=== PATIENT | male | born 1955 | race Hispanic/Latino ===

== ENCOUNTER → 2018-07-11 | Emergency (ER) | payer MEDICARE, OTHER ==
[~2018-07-11] VITALS: Ht 157.5 cm; Wt 120.2 kg
[~2018-07-11] MED LIST: CEFEPIME HCL 2 GM VIAL IV SCH; MORPHINE SULFATE INJ 4 MG/ML INJ IV PRN; VANCOMYCIN 1GM/NS 250 ML 250 ML IV SCH
--- OUTSIDE RECORDS SUMMARY | 2018-07-11 18:33 | XMS REPORT | CCD ---
Author Author Auto Generated Organization 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 Name Role Phone Robin Allred CP Allergies, Adverse Reactions, Alerts Substance Reaction Status NKDA Active Medications Medication Instructions Start Date End Date Status lidocaine 1% 1 ml, Route: SUB-Q, Drug Form: INJ, 06/09/2012 06/09/2012 Ordered Dosing Weight 132.727, kg, ONCE, STAT, Start date: 06/09/12 17:11:00, Stop date: 06/09/12 17:11:00 Bactrim oral tablet 2 tab, PO, BID, 40 tab, 06/09/2012 06/19/2012 Ordered Substitution Allowed, Maintenance Keflex 500 mg oral 500 mg, 1 cap, PO, QID, 40 cap, 06/09/2012 06/19/2012 Ordered capsule Substitution Allowed Vital Signs Most recent to oldest [Reference Range]: 1 Weight 132.727 kg (06/09/2012 14:29:00) Results BEDSIDE GLUCOSE TESTING Most recent to oldest [Reference Range]: 1 Gluc POC Lifscn [70-99 mg/dL] 92 mg/dL 1 (06/09/2012 17:17:00) Comment1 Notify RN/MD *NA* (06/09/2012 17:17:00) 1Interpretive Data: Upper Reportable Limit: 200 mg/dL.
--- OUTSIDE RECORDS SUMMARY | 2018-07-11 18:33 | XMS REPORT ---
Author Author [facility] Address Unknown Phone Unavailable Care Team Providers Care Maintenance Machine Repairer Name Role Phone GIANNI TOBIN Unavailable Unavailable STEPHEN ARMAS Unavailable Unavailable TEODORO GUAJARDO Unavailable Unavailable Jourdan ESPARZA Unavailable Unavailable Problems This patient has no known problems. Allergies, Adverse Reactions, Alerts This patient has no known allergies or adverse reactions. Medications This patient has no known medications. Results Test Description Test Time Test Comments Text Results Atomic Results Result Comments BLOOD CULTURE 2018-06-22 10:01:00 CULTURE (BEAKER) (test ewll=1369) No growth in 5 days BLOOD [id number] 23:01:00* Test Item Value Reference Range Comments CULTURE (BEAKER) (test tmzs=5728) No growth in 5 days BLOOD [id number] 23:01:00* Test Item Value Reference Range Comments CULTURE (BEAKER) (test kjbj=5518) No growth in 5 days POCT-GLUCOSE [id number] 11:45:00* Test Item Value Reference Range Comments POC-GLUCOSE METER (BEAKER) (test ekae=3597) 121 mg/dL 70-110 [address]ED AT [address] [address] POCT-GLUCOSE [id number] 07:49:00* Test Item Value Reference Range Comments POC-GLUCOSE METER (BEAKER) (test czdf=1242) 81 mg/dL 70-110 TESTED AT [address] [address] BASIC METABOLIC [id number] 06:28:00* Test Item Value Reference Range Comments SODIUM (BEAKER) (test xftt=451) 137 meq/L 136-145 POTASSIUM (BEAKER) (test cqtb=453) 4.3 meq/L 3.5-5.1 CHLORIDE (BEAKER) (test rqho=006) 105 meq/L 98-107 CO2 (BEAKER) (test tozc=781) 24 meq/L 22-29 BLOOD UREA NITROGEN (BEAKER) (test cwai=762) 12 mg/dL 7-21 CREATININE (BEAKER) (test atzr=700) 0.85 mg/dL 0.57-1.25 GLUCOSE RANDOM (BEAKER) (test vqng=148) 67 mg/dL 70-105 CALCIUM (BEAKER) (test lmqi=007) 9.1 mg/dL 8.4-10.2 EGFR (BEAKER) (test qiqz=0570) 91 mL/min/1.73 sq m ESTIMATED GFR IS NOT ACCURATE CREATININE CLEARANCE IN PREDICTING GLOMERULAR FILTRATION RATE. ESTIMATED GFR IS NOT APPLICABLE FOR DIALYSIS PATIENTS. VANCOMYCIN LEVEL, [id number] 06:00:00* Test Item Value Reference Range Comments VANCOMYCIN RANDOM (BEAKER) (test rtro=913) 50.8 ug/mL Reference Range: No NormalsCBC W/PLT COUNT & AUTO [id number] 05:24:00* Test Item Value Reference Range Comments WHITE BLOOD CELL COUNT (BEAKER) (test eodb=760) 8.6 K/ L 3.5-10.5 RED BLOOD CELL COUNT (BEAKER) (test zkaj=207) 4.09 M/ L 4.63-6.08 HEMOGLOBIN (BEAKER) (test psaw=686) 13.0 GM/DL 13.7-17.5 HEMATOCRIT (BEAKER) (test qpvr=118) 40.4 % 40.1-51.0 MEAN CORPUSCULAR VOLUME (BEAKER) (test rjkx=970) 98.8 fL 79.0-92.2 MEAN CORPUSCULAR HEMOGLOBIN (BEAKER) (test zoyn=355) 31.8 pg 25.7-32.2 MEAN CORPUSCULAR HEMOGLOBIN CONC (BEAKER) (test omkc=419) 32.2 GM/DL 32.3-36.5 RED CELL DISTRIBUTION WIDTH (BEAKER) (test mlfz=050) 15.1 % 11.6-14.4 PLATELET COUNT (BEAKER) (test xfvr=653) 234 K/CU MM 150-450 MEAN PLATELET VOLUME (BEAKER) (test wckr=785) 9.9 fL 9.4-12.4 NUCLEATED RED BLOOD CELLS (BEAKER) (test vnhn=263) 0 /100 WBC 0-0 NEUTROPHILS RELATIVE PERCENT (BEAKER) (test kjac=625) 52 % LYMPHOCYTES RELATIVE PERCENT (BEAKER) (test ypfj=981) 20 % MONOCYTES RELATIVE PERCENT (BEAKER) (test zcbe=381) 17 % EOSINOPHILS RELATIVE PERCENT (BEAKER) (test rizq=222) 10 % BASOPHILS RELATIVE PERCENT (BEAKER) (test ctly=536) 1 % NEUTROPHILS ABSOLUTE COUNT (BEAKER) (test wptu=306) 4.50 K/ L 1.78-5.38 LYMPHOCYTES ABSOLUTE COUNT (BEAKER) (test zarb=824) 1.74 K/ L 1.32-3.57 MONOCYTES ABSOLUTE COUNT (BEAKER) (test wtft=591) 1.45 K/ L 0.30-0.82 EOSINOPHILS ABSOLUTE COUNT (BEAKER) (test kryo=425) 0.84 K/ L 0.04-0.54 BASOPHILS ABSOLUTE COUNT (BEAKER) (test sjxp=769) 0.07 K/ L 0.01-0.08 IMMATURE GRANULOCYTES-RELATIVE PERCENT (BEAKER) (test fqzi=0501) 0 % 0-1 POCT-GLUCOSE [id number] 22:20:00* Test Item Value Reference Range Comments POC-GLUCOSE METER (BEAKER) (test tcet=1510) 93 mg/dL 70-110 TESTED AT [address] [address] POCT-GLUCOSE [id number] 16:57:00* Test Item Value Reference Range Comments POC-GLUCOSE METER (BEAKER) (test bruq=6062) 150 mg/dL 70-110 TESTED AT [address] [address] VANCOMYCIN LEVEL, [id number] 15:28:00* Test Item Value Reference Range Comments VANCOMYCIN RANDOM (BEAKER) (test exea=233) 56.7 ug/mL Reference Range: No NormalsPOCT-GLUCOSE [id number] 12:49:00* Test Item Value Reference Range Comments POC-GLUCOSE METER (BEAKER) (test ktky=7979) 94 mg/dL 70-110 TESTED AT [address] [address] POCT-GLUCOSE [id number] 08:30:00* Test Item Value Reference Range Comments POC-GLUCOSE METER (BEAKER) (test uarn=1064) 88 mg/dL 70-110 TESTED AT [address] [address] VANCOMYCIN LEVEL, [id number] 07:30:00* Test Item Value Reference Range Comments VANCOMYCIN TROUGH (BEAKER) (test rzen=064) 54.7 ug/mL 10.0-20.0 BASIC METABOLIC [id number] 07:29:00* Test Item Value Reference Range Comments SODIUM (BEAKER) (test ustf=504) 140 meq/L 136-145 POTASSIUM (BEAKER) (test cbah=151) 4.3 meq/L 3.5-5.1 CHLORIDE (BEAKER) (test jcdd=004) 109 meq/L 98-107 CO2 (BEAKER) (test qdnb=682) 26 meq/L 22-29 BLOOD UREA NITROGEN (BEAKER) (test kuzr=736) 13 mg/dL 7-21 CREATININE (BEAKER) (test zreu=878) 0.84 mg/dL 0.57-1.25 GLUCOSE RANDOM (BEAKER) (test tbkn=154) 80 mg/dL 70-105 CALCIUM (BEAKER) (test zwbq=963) 9.0 mg/dL 8.4-10.2 EGFR (BEAKER) (test roml=3120) 93 mL/min/1.73 sq m ESTIMATED GFR IS NOT ACCURATE CREATININE CLEARANCE IN PREDICTING GLOMERULAR FILTRATION RATE. ESTIMATED GFR IS NOT APPLICABLE FOR DIALYSIS PATIENTS. CBC W/PLT COUNT & AUTO [id number] 05:41:00* Test Item Value Reference Range Comments WHITE BLOOD CELL COUNT (BEAKER) (test yxum=540) 9.1 K/ L 3.5-10.5 RED BLOOD CELL COUNT (BEAKER) (test omig=594) 3.96 M/ L 4.63-6.08 HEMOGLOBIN (BEAKER) (test lhxy=534) 12.5 GM/DL 13.7-17.5 HEMATOCRIT (BEAKER) (test dkop=713) 41.0 % 40.1-51.0 MEAN CORPUSCULAR VOLUME (BEAKER) (test ywqn=325) 103.5 fL 79.0-92.2 MEAN CORPUSCULAR HEMOGLOBIN (BEAKER) (test jzrs=460) 31.6 pg 25.7-32.2 MEAN CORPUSCULAR HEMOGLOBIN CONC (BEAKER) (test gqjx=268) 30.5 GM/DL 32.3-36.5 RED CELL DISTRIBUTION WIDTH (BEAKER) (test mzue=238) 15.7 % 11.6-14.4 PLATELET COUNT (BEAKER) (test zvay=417) 228 K/CU MM 150-450 MEAN PLATELET VOLUME (BEAKER) (test zlzh=924) 9.8 fL 9.4-12.4 NUCLEATED RED BLOOD CELLS (BEAKER) (test dkam=312) 0 /100 WBC 0-0 NEUTROPHILS RELATIVE PERCENT (BEAKER) (test dkyw=970) 62 % LYMPHOCYTES RELATIVE PERCENT (BEAKER) (test tsen=846) 15 % MONOCYTES RELATIVE PERCENT (BEAKER) (test qroz=229) 14 % EOSINOPHILS RELATIVE PERCENT (BEAKER) (test utxk=940) 8 % BASOPHILS RELATIVE PERCENT (BEAKER) (test dcdb=300) 1 % NEUTROPHILS ABSOLUTE COUNT (BEAKER) (test msdj=209) 5.64 K/ L 1.78-5.38 LYMPHOCYTES ABSOLUTE COUNT (BEAKER) (test bmga=122) 1.33 K/ L 1.32-3.57 MONOCYTES ABSOLUTE COUNT (BEAKER) (test ssck=701) 1.26 K/ L 0.30-0.82 EOSINOPHILS ABSOLUTE COUNT (BEAKER) (test cbpm=736) 0.74 K/ L 0.04-0.54 BASOPHILS ABSOLUTE COUNT (BEAKER) (test rnyc=075) 0.07 K/ L 0.01-0.08 IMMATURE GRANULOCYTES-RELATIVE PERCENT (BEAKER) (test vkog=8326) 0 % 0-1 CBC W/PLT COUNT & AUTO [id number] 05:41:00* Test Item Value Reference Range Comments WHITE BLOOD CELL COUNT (BEAKER) (test vwjt=512) 10.1 K/ L 3.5-10.5 RED BLOOD CELL COUNT (BEAKER) (test dnhb=248) 4.01 M/ L 4.63-6.08 HEMOGLOBIN (BEAKER) (test snvx=293) 12.5 GM/DL 13.7-17.5 HEMATOCRIT (BEAKER) (test kosv=656) 40.0 % 40.1-51.0 MEAN CORPUSCULAR VOLUME (BEAKER) (test sbpy=948) 99.8 fL 79.0-92.2 MEAN CORPUSCULAR HEMOGLOBIN (BEAKER) (test ijlq=681) 31.2 pg 25.7-32.2 MEAN CORPUSCULAR HEMOGLOBIN CONC (BEAKER) (test ahcr=257) 31.3 GM/DL 32.3-36.5 RED CELL DISTRIBUTION WIDTH (BEAKER) (test aqsz=897) 15.6 % 11.6-14.4 PLATELET COUNT (BEAKER) (test eitn=419) 225 K/CU MM 150-450 MEAN PLATELET VOLUME (BEAKER) (test cpjw=599) 9.7 fL 9.4-12.4 NUCLEATED RED BLOOD CELLS (BEAKER) (test hkjn=333) 0 /100 WBC 0-0 NEUTROPHILS RELATIVE PERCENT (BEAKER) (test zvnu=051) 63 % LYMPHOCYTES RELATIVE PERCENT (BEAKER) (test ihcn=427) 14 % MONOCYTES RELATIVE PERCENT (BEAKER) (test oxrv=750) 13 % EOSINOPHILS RELATIVE PERCENT (BEAKER) (test vgzh=281) 9 % BASOPHILS RELATIVE PERCENT (BEAKER) (test wpwj=480) 1 % NEUTROPHILS ABSOLUTE COUNT (BEAKER) (test rvbj=114) 6.32 K/ L 1.78-5.38 LYMPHOCYTES ABSOLUTE COUNT (BEAKER) (test ecdu=241) 1.42 K/ L 1.32-3.57 MONOCYTES ABSOLUTE COUNT (BEAKER) (test yzek=541) 1.32 K/ L 0.30-0.82 EOSINOPHILS ABSOLUTE COUNT (BEAKER) (test mpjt=784) 0.86 K/ L 0.04-0.54 BASOPHILS ABSOLUTE COUNT (BEAKER) (test gyyj=245) 0.09 K/ L 0.01-0.08 IMMATURE GRANULOCYTES-RELATIVE PERCENT (BEAKER) (test royc=8116) 0 % 0-1 POCT-GLUCOSE [id number] 21:50:00* Test Item Value Reference Range Comments POC-GLUCOSE METER (BEAKER) (test mgmk=4951) 92 mg/dL 70-110 TESTED AT [address] [address] POCT-GLUCOSE [id number] 18:04:00* Test Item Value Reference Range Comments POC-GLUCOSE METER (BEAKER) (test ubdr=4440) 111 mg/dL 70-110 TESTED AT [address] [address] POCT-GLUCOSE [id number] 12:37:00* Test Item Value Reference Range Comments POC-GLUCOSE METER (BEAKER) (test dpaz=1440) 92 mg/dL 70-110 TESTED AT [address] [address] POCT-GLUCOSE [id number] 08:51:00* Test Item Value Reference Range Comments POC-GLUCOSE METER (BEAKER) (test dwrs=7921) 95 mg/dL 70-110 TESTED AT [facility] [address] [facility] [address] BLOOD GAS, [id number] 07:33:00* Test Item Value Reference Range Comments PH VENOUS (BEAKER) (test pkpa=133) 7.30 7.32-7.42 PCO2 VENOUS (BEAKER) (test crzu=476) 54 mmHg 41-51 PO2 VENOUS (BEAKER) (test bcqd=717) 202 mmHg 25-40 O2 SATURATION VENOUS (BEAKER) (test wlek=743) 99.2 % 40.0-70.0 HCO3 VENOUS (BEAKER) (test fysz=610) 26 mmol/L 21-29 BASE EXCESS VENOUS (BEAKER) (test evid=767) -1.1 mmol/L -2.0-3.0 PATIENT TEMPERATURE (BEAKER) (test xaux=7681) 38.0 C FIO2 (BEAKER) (test brbv=7188) 24.0 % COMPREHENSIVE METABOLIC [id number] 05:28:00* Test Item Value Reference Range Comments TOTAL PROTEIN (BEAKER) (test kmvd=421) 7.5 gm/dL 6.0-8.3 Specimen moderately hemolyzed ALBUMIN (BEAKER) (test goir=8683) 2.7 g/dL 3.5-5.0 Specimen moderately hemolyzed ALKALINE PHOSPHATASE (BEAKER) (test xrtv=928) 55 U/L 40-150 BILIRUBIN TOTAL (BEAKER) (test snyc=251) 1.0 mg/dL 0.2-1.2 Specimen moderately hemolyzed SODIUM (BEAKER) (test ojna=783) 142 meq/L 136-145 POTASSIUM (BEAKER) (test suyx=735) 4.7 meq/L 3.5-5.1 Specimen moderately hemolyzed CHLORIDE (BEAKER) (test jhkm=075) 110 meq/L 98-107 CO2 (BEAKER) (test nmgc=369) 28 meq/L 22-29 BLOOD UREA NITROGEN (BEAKER) (test dhdv=764) 13 mg/dL 7-21 CREATININE (BEAKER) (test ciag=071) 0.81 mg/dL 0.57-1.25 Specimen moderately hemolyzed GLUCOSE RANDOM (BEAKER) (test zhek=691) 86 mg/dL 70-105 CALCIUM (BEAKER) (test bekx=690) 9.1 mg/dL 8.4-10.2 AST (SGOT) (BEAKER) (test inro=726) 40 U/L 5-34 Specimen moderately hemolyzed ALT (SGPT) (BEAKER) (test vrvo=507) 12 U/L 6-55 Specimen moderately hemolyzed EGFR (BEAKER) (test xnzh=3897) 97 mL/min/1.73 sq m ESTIMATED GFR IS NOT ACCURATE CREATININE CLEARANCE IN PREDICTING GLOMERULAR FILTRATION RATE. ESTIMATED GFR IS NOT APPLICABLE FOR DIALYSIS PATIENTS. CBC W/PLT COUNT & AUTO [id number] 05:04:00* Test Item Value Reference Range Comments WHITE BLOOD CELL COUNT (BEAKER) (test ndmq=294) 8.4 K/ L 3.5-10.5 RED BLOOD CELL COUNT (BEAKER) (test mgtr=442) 3.91 M/ L 4.63-6.08 HEMOGLOBIN (BEAKER) (test cyva=590) 12.4 GM/DL 13.7-17.5 HEMATOCRIT (BEAKER) (test pezj=365) 38.0 % 40.1-51.0 MEAN CORPUSCULAR VOLUME (BEAKER) (test squy=097) 97.2 fL 79.0-92.2 MEAN CORPUSCULAR HEMOGLOBIN (BEAKER) (test yida=041) 31.7 pg 25.7-32.2 MEAN CORPUSCULAR HEMOGLOBIN CONC (BEAKER) (test urfg=331) 32.6 GM/DL 32.3-36.5 RED CELL DISTRIBUTION WIDTH (BEAKER) (test zifr=392) 15.8 % 11.6-14.4 PLATELET COUNT (BEAKER) (test xdts=510) 227 K/CU MM 150-450 MEAN PLATELET VOLUME (BEAKER) (test izjo=307) 9.6 fL 9.4-12.4 NUCLEATED RED BLOOD CELLS (BEAKER) (test nevc=562) 0 /100 WBC 0-0 NEUTROPHILS RELATIVE PERCENT (BEAKER) (test anfb=589) 63 % LYMPHOCYTES RELATIVE PERCENT (BEAKER) (test cpag=972) 19 % MONOCYTES RELATIVE PERCENT (BEAKER) (test qutc=752) 13 % EOSINOPHILS RELATIVE PERCENT (BEAKER) (test mjur=393) 4 % BASOPHILS RELATIVE PERCENT (BEAKER) (test nsby=683) 1 % NEUTROPHILS ABSOLUTE COUNT (BEAKER) (test kzkp=863) 5.26 K/ L 1.78-5.38 LYMPHOCYTES ABSOLUTE COUNT (BEAKER) (test emjf=152) 1.57 K/ L 1.32-3.57 MONOCYTES ABSOLUTE COUNT (BEAKER) (test xfan=423) 1.07 K/ L 0.30-0.82 EOSINOPHILS ABSOLUTE COUNT (BEAKER) (test nnez=000) 0.37 K/ L 0.04-0.54 BASOPHILS ABSOLUTE COUNT (BEAKER) (test nyam=823) 0.04 K/ L 0.01-0.08 IMMATURE GRANULOCYTES-RELATIVE PERCENT (BEAKER) (test jdff=0073) 1 % 0-1 POCT-GLUCOSE [id number] 21:22:00* Test Item Value Reference Range Comments POC-GLUCOSE METER (BEAKER) (test cnoj=7857) 101 mg/dL 70-110 TESTED AT [address] [address] RAD, FOOT, MIN 3 VIEWS, [id number] 17:31:00Reason for exam:->FO[place] PA[place] [facility] [place] on both feetShould this be performed at the bedside?->NoFINAL REPORT EXAM: Left foot 3 views COMPARISON: July 02, 2017 Clinical history: Foot pain FINDINGS: Diffuse soft tissue swelling is again noted throughout the entire foot and ankle which may represent edema versus postinflammatory changes. There is no evidence of acute fracture or malalignment. The articular joints are within normal limits. Signed: Eddie Cervantes MDReport Verified Date/Time: 06/16/2018 17:31:31 Reading Location: [facility] C013W Consult Reading Room , FOOT, MIN 3 VIEWS, [id number] 17:29:00Reason for exam:->FOOT PAINpatientbr[place] [facility] [place] on both feetShould this be performed at the bedside?->NoFINAL REPORT EXAM: Right foot 3 views COMPARISON: July 02, 2017 CLINICAL HISTORY: Foot pain FINDINGS: There is no evidence for acute fracture or malalignment. The articular joints are within normal limits. Diffuse soft tissue prominence is again noted which may represent edema versus post inf lammatory changes. Recommend clinical correlation. Signed: Eddie Cervantes MDRep ort Verified Date/Time: 06/16/2018 17:29:59 Reading Location: [address] Cons ult Reading Room , CHEST, 2 [id number] 17:27:00Reason for exam:-> wheezingpatientbr[place] [facility] [place] on both feetShould this be p erformed at the bedside?->NoFINAL REPORT EXAM: PA and lateral chest radiograph COMPARISON: March 19, 2018 CLINICAL HISTORY: Wheezing FINDINGS: There is no evidence of pulmonary consolidation, pleural effusion, or pneumothorax. There is interval improvement in left basilar pulmonary opacity which may represent resolved atelectasis versus consolidation. The cardiac size is within normal limits. The regional osseous structures are unremarkable. Signed: Eddie Cervantes MDReport Verified Date/Time: 06/16/2018 17:27:07 Reading Location: [address] Consult Reading Room C METABOLIC [id number] 16:56:00* Test Item Value Reference Range Comments SODIUM (BEAKER) (test yifq=205) 142 meq/L 135-148 POTASSIUM (BEAKER) (test ulcd=083) 5.3 meq/L 3.6-5.5 CHLORIDE (BEAKER) (test lakw=942) 103 meq/L 98-106 CO2 (BEAKER) (test qmpa=202) 32 meq/L 24-32 BLOOD UREA NITROGEN (BEAKER) (test cpcs=151) 15 mg/dL 10-26 CREATININE (BEAKER) (test jvtk=457) 0.66 mg/dL 0.50-1.20 GLUCOSE RANDOM (BEAKER) (test uvbo=336) 74 mg/dL 70-110 CALCIUM (BEAKER) (test xtul=366) 9.1 mg/dL 8.5-10.5 EGFR (BEAKER) (test mhod=2876) 122 mL/min/1.73 sq m ESTIMATED GFR IS NOT ACCURATE CREATININE CLEARANCE IN PREDICTING GLOMERULAR FILTRATION RATE. ESTIMATED GFR IS NOT APPLICABLE FOR DIALYSIS PATIENTS. CBC W/PLT COUNT & AUTO [id number] 16:49:00* Test Item Value Reference Range Comments WHITE BLOOD CELL COUNT (BEAKER) (test ktvo=043) 11.4 K/ L 4.0-10.0 RED BLOOD CELL COUNT (BEAKER) (test amdp=000) 4.61 M/ L 4.20-5.80 HEMOGLOBIN (BEAKER) (test jkkv=948) 14.0 GM/DL 13.0-16.8 HEMATOCRIT (BEAKER) (test qvue=072) 43.7 % 40.0-50.0 MEAN CORPUSCULAR VOLUME (BEAKER) (test nlla=048) 94.7 fL 82.0-98.0 MEAN CORPUSCULAR HEMOGLOBIN (BEAKER) (test cqfr=547) 30.5 pg 27.0-33.0 MEAN CORPUSCULAR HEMOGLOBIN CONC (BEAKER) (test bdqe=288) 32.2 GM/DL 32.0-36.0 RED CELL DISTRIBUTION WIDTH (BEAKER) (test jtac=098) 13.4 % 10.3-14.2 PLATELET COUNT (BEAKER) (test ofpx=013) 344 K/CU MM 150-430 MEAN PLATELET VOLUME (BEAKER) (test ojtz=229) 8.2 fL 6.5-10.5 NEUTROPHILS RELATIVE PERCENT (BEAKER) (test leao=214) 57 % LYMPHOCYTES RELATIVE PERCENT (BEAKER) (test fglh=170) 22 % MONOCYTES RELATIVE PERCENT (BEAKER) (test zzst=449) 16 % EOSINOPHILS RELATIVE PERCENT (BEAKER) (test uyfh=116) 4 % BASOPHILS RELATIVE PERCENT (BEAKER) (test ueml=842) 1 % NEUTROPHILS ABSOLUTE COUNT (BEAKER) (test zosr=141) 6.45 K/ L 1.80-8.00 LYMPHOCYTES ABSOLUTE COUNT (BEAKER) (test cbip=185) 2.48 K/ L 1.48-4.50 MONOCYTES ABSOLUTE COUNT (BEAKER) (test fmwc=356) 1.78 K/ L 0.00-1.30 EOSINOPHILS ABSOLUTE COUNT (BEAKER) (test epqy=771) 0.50 K/ L 0.00-0.50 BASOPHILS ABSOLUTE COUNT (BEAKER) (test pgro=067) 0.15 K/ L 0.00-0.20 RAPID [id number] 15:57:00* Test Item Value Reference Range Comments RAPID CKMB (BEAKER) (test qnjv=5188) 3.5 ng/mL 0.0-4.3 RAPID TROPONIN [id number] 15:57:00* Test Item Value Reference Range Comments RAPID TROPONIN I (BEAKER) (test flkm=6438) < ng/mL <0.05 RAD, CHEST, 1 VIEW, NON [id number] 15:51:00Reason for exam:->CHEST PAINpatient c/o left chest pain with sob x3 daysShould this be performed at the bedside?->NoFINAL REPORT TECHNIQUE: Frontal chest radiograph dated 03/19/2018. CLINICAL HISTORY: Chest pain COMPARISON STUDY: Chest radiograph dated 07/02/2017 IMPRESSION: There is atelectasis in the lung bases. Lungs are otherwise clear. No pleural effusion or pneumothorax. Cardiomediastinal silhouette is stable in size. No pulmonary edema. No fracture. Signed: Tracy Hand Verified Date/Time: 03/19/2018 15:51:57 Reading Location: [facility] Radiology Reading Room B-TYPE NATRIURETIC FACTOR (BNP) 2018-03-19 15:49:00* Test Item Value Reference Range Comments B-TYPE NATRIURETIC PEPTIDE (BEAKER) (test crbf=624) 51 pg/mL 0-100 HEPATIC FUNCTION [id number] 15:44:00* Test Item Value Reference Range Comments TOTAL PROTEIN (BEAKER) (test vhqb=508) 8.9 gm/dL 6.0-8.5 ALBUMIN (BEAKER) (test iiks=3905) 3.6 g/dL 3.5-5.0 BILIRUBIN TOTAL (BEAKER) (test wcos=295) 0.7 mg/dL 0.1-1.2 BILIRUBIN DIRECT (BEAKER) (test xlgb=864) 0.4 mg/dL 0.0-0.4 ALKALINE PHOSPHATASE (BEAKER) (test orqb=807) 105 U/L 30-115 AST (SGOT) (BEAKER) (test bsmc=574) 34 U/L 5-40 ALT (SGPT) (BEAKER) (test rblk=578) 28 U/L 5-50 BASIC METABOLIC [id number] 15:41:00* Test Item Value Reference Range Comments SODIUM (BEAKER) (test juue=280) 146 meq/L 135-148 POTASSIUM (BEAKER) (test uvkp=304) 4.4 meq/L 3.6-5.5 CHLORIDE (BEAKER) (test jnre=628) 109 meq/L 98-106 CO2 (BEAKER) (test thrt=969) 29 meq/L 24-32 BLOOD UREA NITROGEN (BEAKER) (test dxlq=211) 13 mg/dL 10-26 CREATININE (BEAKER) (test hkkz=582) 0.71 mg/dL 0.50-1.20 GLUCOSE RANDOM (BEAKER) (test ufbq=857) 81 mg/dL 70-110 CALCIUM (BEAKER) (test umgz=926) 9.1 mg/dL 8.5-10.5 EGFR (BEAKER) (test cufc=4321) 112 mL/min/1.73 sq m ESTIMATED GFR IS NOT ACCURATE CREATININE CLEARANCE IN PREDICTING GLOMERULAR FILTRATION RATE. ESTIMATED GFR IS NOT APPLICABLE FOR DIALYSIS PATIENTS. [id number] 15:41:00* Test Item Value Reference Range Comments LIPASE (BEAKER) (test srxr=128) 82 U/L 40-240 CBC W/PLT COUNT & AUTO [id number] 15:35:00* Test Item Value Reference Range Comments WHITE BLOOD CELL COUNT (BEAKER) (test boia=153) 10.1 10e3/i? L 4.0-10.0 RED BLOOD CELL COUNT (BEAKER) (test iiuz=605) 5.06 10e6/i? L 4.20-5.80 HEMOGLOBIN (BEAKER) (test hvbj=034) 15.2 g/dL 13.0-16.8 HEMATOCRIT (BEAKER) (test cuwg=126) 48.7 % 40.0-50.0 MEAN CORPUSCULAR VOLUME (BEAKER) (test moyf=165) 96.2 fL 82.0-98.0 MEAN CORPUSCULAR HEMOGLOBIN (BEAKER) (test fsft=074) 30.0 pg 27.0-33.0 MEAN CORPUSCULAR HEMOGLOBIN CONC (BEAKER) (test nmxl=337) 31.2 g/dL 32.0-36.0 RED CELL DISTRIBUTION WIDTH (BEAKER) (test udkg=360) 12.4 % 10.3-14.2 PLATELET COUNT (BEAKER) (test gbkf=860) 351 10e3/i? L 150-430 MEAN PLATELET VOLUME (BEAKER) (test gqon=100) 7.6 fL 6.5-10.5 NEUTROPHILS RELATIVE PERCENT (BEAKER) (test rplz=339) 49 % LYMPHOCYTES RELATIVE PERCENT (BEAKER) (test qmts=977) 27 % MONOCYTES RELATIVE PERCENT (BEAKER) (test cpen=526) 14 % EOSINOPHILS RELATIVE PERCENT (BEAKER) (test qnnp=882) 8 % BASOPHILS RELATIVE PERCENT (BEAKER) (test iwxh=036) 2 % NEUTROPHILS ABSOLUTE COUNT (BEAKER) (test enay=535) 4.92 10e3/i? L 1.80-8.00 LYMPHOCYTES ABSOLUTE COUNT (BEAKER) (test asjg=880) 2.77 10e3/i? L 1.48-4.50 MONOCYTES ABSOLUTE COUNT (BEAKER) (test bchp=464) 1.44 10e3/i? L 0.00-1.30 EOSINOPHILS ABSOLUTE COUNT (BEAKER) (test lwrl=028) 0.85 10e3/i? L 0.00-0.50 BASOPHILS ABSOLUTE COUNT (BEAKER) (test tadj=671) 0.15 10e3/i? L 0.00-0.20 BLOOD [id number] 05:01:00* Test Item Value Reference Range Comments CULTURE (BEAKER) (test ryyx=5672) No growth in 5 days BLOOD [id number] 05:01:00* Test Item Value Reference Range Comments CULTURE (BEAKER) (test hxzm=6622) No growth in 5 days POCT-GLUCOSE [id number] 13:04:00* Test Item Value Reference Range Comments POC-GLUCOSE METER (BEAKER) (test kgcz=4343) 122 mg/dL 70-110 TESTED AT [facility] [address] [facility] [address] POCT-GLUCOSE [id number] 12:46:00* Test Item Value Reference Range Comments POC-GLUCOSE METER (BEAKER) (test dvtm=2460) 67 mg/dL 70-110 Notified WENDY ACOSTA/TESTED AT [facility] [address] [facility] [address] CBC W/PLT COUNT & AUTO [id number] 12:10:00* Test Item Value Reference Range Comments WHITE BLOOD CELL COUNT (BEAKER) (test qjfn=410) 9.8 K/ L 3.5-10.5 RED BLOOD CELL COUNT (BEAKER) (test pndt=007) 4.22 M/ L 4.63-6.08 HEMOGLOBIN (BEAKER) (test jaki=750) 13.0 GM/DL 13.7-17.5 HEMATOCRIT (BEAKER) (test kaiu=857) 39.8 % 40.1-51.0 MEAN CORPUSCULAR VOLUME (BEAKER) (test sbji=240) 94.3 fL 79.0-92.2 MEAN CORPUSCULAR HEMOGLOBIN (BEAKER) (test iuzp=211) 30.8 pg 25.7-32.2 MEAN CORPUSCULAR HEMOGLOBIN CONC (BEAKER) (test hzlr=869) 32.7 GM/DL 32.3-36.5 RED CELL DISTRIBUTION WIDTH (BEAKER) (test ihdm=857) 14.3 % 11.6-14.4 PLATELET COUNT (BEAKER) (test bmss=447) 278 K/CU MM 150-450 MEAN PLATELET VOLUME (BEAKER) (test wcqr=358) 10.1 fL 9.4-12.4 NUCLEATED RED BLOOD CELLS (BEAKER) (test lxbx=248) 0 /100 WBC 0-0 NEUTROPHILS RELATIVE PERCENT (BEAKER) (test lewk=103) 55 % LYMPHOCYTES RELATIVE PERCENT (BEAKER) (test fvjc=275) 22 % MONOCYTES RELATIVE PERCENT (BEAKER) (test beyg=676) 13 % EOSINOPHILS RELATIVE PERCENT (BEAKER) (test oyxq=256) 9 % BASOPHILS RELATIVE PERCENT (BEAKER) (test uhqu=021) 1 % NEUTROPHILS ABSOLUTE COUNT (BEAKER) (test slgj=024) 5.37 K/ L 1.78-5.38 LYMPHOCYTES ABSOLUTE COUNT (BEAKER) (test bsap=219) 2.19 K/ L 1.32-3.57 MONOCYTES ABSOLUTE COUNT (BEAKER) (test aycu=017) 1.24 K/ L 0.30-0.82 EOSINOPHILS ABSOLUTE COUNT (BEAKER) (test rbju=805) 0.83 K/ L 0.04-0.54 BASOPHILS ABSOLUTE COUNT (BEAKER) (test upqt=237) 0.09 K/ L 0.01-0.08 IMMATURE GRANULOCYTES-RELATIVE PERCENT (BEAKER) (test jzpl=1773) 1 % 0-1 POCT-GLUCOSE [id number] 08:34:00* Test Item Value Reference Range Comments POC-GLUCOSE METER (BEAKER) (test cjaz=4410) 85 mg/dL 70-110 TESTED AT [facility] [address] [facility] [address] [id number] 07:47:00* Test Item Value Reference Range Comments PHOSPHORUS (BEAKER) (test jpyb=145) 3.4 mg/dL 2.3-4.7 [id number] 07:47:00* Test Item Value Reference Range Comments MAGNESIUM (BEAKER) (test ykvd=685) 1.7 mg/dL 1.6-2.6 BASIC METABOLIC [id number] 07:47:00* Test Item Value Reference Range Comments SODIUM (BEAKER) (test amll=632) 140 meq/L 136-145 POTASSIUM (BEAKER) (test pcso=254) 4.5 meq/L 3.5-5.1 CHLORIDE (BEAKER) (test eyvu=619) 108 meq/L 98-107 CO2 (BEAKER) (test yoiw=860) 24 meq/L 22-29 BLOOD UREA NITROGEN (BEAKER) (test zslp=164) 16 mg/dL 7-21 CREATININE (BEAKER) (test secx=685) 0.76 mg/dL 0.57-1.25 GLUCOSE RANDOM (BEAKER) (test izhw=795) 79 mg/dL 70-105 CALCIUM (BEAKER) (test datt=294) 9.1 mg/dL 8.4-10.2 EGFR (BEAKER) (test zthd=6144) 104 mL/min/1.73 sq m ESTIMATED GFR IS NOT ACCURATE CREATININE CLEARANCE IN PREDICTING GLOMERULAR FILTRATION RATE. ESTIMATED GFR IS NOT APPLICABLE FOR DIALYSIS PATIENTS. POCT-GLUCOSE [id number] 21:57:00* Test Item Value Reference Range Comments POC-GLUCOSE METER (BEAKER) (test wnys=1246) 96 mg/dL 70-110 TESTED AT [facility] [address] [facility] [address] BASIC METABOLIC [id number] 13:24:00* Test Item Value Reference Range Comments SODIUM (BEAKER) (test lftq=804) 141 meq/L 136-145 POTASSIUM (BEAKER) (test rczf=862) 4.3 meq/L 3.5-5.1 CHLORIDE (BEAKER) (test tpfw=373) 107 meq/L 98-107 CO2 (BEAKER) (test fenf=069) 28 meq/L 22-29 BLOOD UREA NITROGEN (BEAKER) (test afde=694) 16 mg/dL 7-21 CREATININE (BEAKER) (test wqlf=739) 0.84 mg/dL 0.57-1.25 GLUCOSE RANDOM (BEAKER) (test zvwb=822) 83 mg/dL 70-105 CALCIUM (BEAKER) (test lvsb=913) 9.4 mg/dL 8.4-10.2 EGFR (BEAKER) (test dvmf=5979) 93 mL/min/1.73 sq m ESTIMATED GFR IS NOT ACCURATE CREATININE CLEARANCE IN PREDICTING GLOMERULAR FILTRATION RATE. ESTIMATED GFR IS NOT APPLICABLE FOR DIALYSIS PATIENTS. CBC W/PLT COUNT & AUTO [id number] 12:54:00* Test Item Value Reference Range Comments WHITE BLOOD CELL COUNT (BEAKER) (test hubx=697) 10.0 K/ L 3.5-10.5 RED BLOOD CELL COUNT (BEAKER) (test kpdc=899) 4.41 M/ L 4.63-6.08 HEMOGLOBIN (BEAKER) (test bcdu=358) 13.6 GM/DL 13.7-17.5 HEMATOCRIT (BEAKER) (test tkqd=925) 42.0 % 40.1-51.0 MEAN CORPUSCULAR VOLUME (BEAKER) (test tqwp=872) 95.2 fL 79.0-92.2 MEAN CORPUSCULAR HEMOGLOBIN (BEAKER) (test xrvd=533) 30.8 pg 25.7-32.2 MEAN CORPUSCULAR HEMOGLOBIN CONC (BEAKER) (test fzbj=176) 32.4 GM/DL 32.3-36.5 RED CELL DISTRIBUTION WIDTH (BEAKER) (test apbf=452) 14.4 % 11.6-14.4 PLATELET COUNT (BEAKER) (test xqtd=255) 265 K/CU MM 150-450 MEAN PLATELET VOLUME (BEAKER) (test ywco=798) 9.8 fL 9.4-12.4 NUCLEATED RED BLOOD CELLS (BEAKER) (test emlt=934) 0 /100 WBC 0-0 NEUTROPHILS RELATIVE PERCENT (BEAKER) (test gpwj=367) 49 % LYMPHOCYTES RELATIVE PERCENT (BEAKER) (test magd=412) 24 % MONOCYTES RELATIVE PERCENT (BEAKER) (test uqew=982) 16 % EOSINOPHILS RELATIVE PERCENT (BEAKER) (test zxan=877) 10 % BASOPHILS RELATIVE PERCENT (BEAKER) (test gbwh=610) 1 % NEUTROPHILS ABSOLUTE COUNT (BEAKER) (test mhre=256) 4.96 K/ L 1.78-5.38 LYMPHOCYTES ABSOLUTE COUNT (BEAKER) (test ethu=880) 2.42 K/ L 1.32-3.57 MONOCYTES ABSOLUTE COUNT (BEAKER) (test yvpf=153) 1.56 K/ L 0.30-0.82 EOSINOPHILS ABSOLUTE COUNT (BEAKER) (test klri=157) 0.96 K/ L 0.04-0.54 BASOPHILS ABSOLUTE COUNT (BEAKER) (test ipdn=496) 0.07 K/ L 0.01-0.08 IMMATURE GRANULOCYTES-RELATIVE PERCENT (BEAKER) (test ggpc=5755) 1 % 0-1 POCT-GLUCOSE [id number] 07:48:00* Test Item Value Reference Range Comments POC-GLUCOSE METER (BEAKER) (test gzwa=8545) 91 mg/dL 70-110 TESTED AT [place] [id number] [facility] [address] POCT-GLUCOSE [id number] 23:46:00* Test Item Value Reference Range Comments POC-GLUCOSE METER (BEAKER) (test wcfq=8382) 88 mg/dL 70-110 TESTED AT [place] [id number] [facility] [address] POCT-GLUCOSE [id number] 18:16:00* Test Item Value Reference Range Comments POC-GLUCOSE METER (BEAKER) (test chlz=4794) 101 mg/dL 70-110 TESTED AT [address] [address] POCT-GLUCOSE [id number] 12:53:00* Test Item Value Reference Range Comments POC-GLUCOSE METER (BEAKER) (test qhgs=3013) 83 mg/dL 70-110 TESTED AT [facility] [address] [facility] [address] CBC W/PLT COUNT & AUTO [id number] 06:01:00* Test Item Value Reference Range Comments WHITE BLOOD CELL COUNT (BEAKER) (test mrrt=833) 11.1 K/ L 3.5-10.5 RED BLOOD CELL COUNT (BEAKER) (test ljvb=355) 4.24 M/ L 4.63-6.08 HEMOGLOBIN (BEAKER) (test kneh=274) 13.2 GM/DL 13.7-17.5 HEMATOCRIT (BEAKER) (test bvjv=962) 40.6 % 40.1-51.0 MEAN CORPUSCULAR VOLUME (BEAKER) (test xtew=799) 95.8 fL 79.0-92.2 MEAN CORPUSCULAR HEMOGLOBIN (BEAKER) (test hgvo=132) 31.1 pg 25.7-32.2 MEAN CORPUSCULAR HEMOGLOBIN CONC (BEAKER) (test awlp=750) 32.5 GM/DL 32.3-36.5 RED CELL DISTRIBUTION WIDTH (BEAKER) (test xqql=438) 15.0 % 11.6-14.4 PLATELET COUNT (BEAKER) (test krsj=304) 257 K/CU MM 150-450 MEAN PLATELET VOLUME (BEAKER) (test xiac=641) 10.2 fL 9.4-12.4 NUCLEATED RED BLOOD CELLS (BEAKER) (test aeyo=443) 0 /100 WBC 0-0 NEUTROPHILS RELATIVE PERCENT (BEAKER) (test yqrb=031) 52 % LYMPHOCYTES RELATIVE PERCENT (BEAKER) (test bpig=087) 17 % MONOCYTES RELATIVE PERCENT (BEAKER) (test nree=037) 21 % EOSINOPHILS RELATIVE PERCENT (BEAKER) (test qicm=482) 9 % BASOPHILS RELATIVE PERCENT (BEAKER) (test qeao=129) 1 % NEUTROPHILS ABSOLUTE COUNT (BEAKER) (test kxye=205) 5.80 K/ L 1.78-5.38 LYMPHOCYTES ABSOLUTE COUNT (BEAKER) (test supj=863) 1.83 K/ L 1.32-3.57 MONOCYTES ABSOLUTE COUNT (BEAKER) (test uszz=805) 2.31 K/ L 0.30-0.82 EOSINOPHILS ABSOLUTE COUNT (BEAKER) (test ufkc=413) 1.02 K/ L 0.04-0.54 BASOPHILS ABSOLUTE COUNT (BEAKER) (test zwig=463) 0.09 K/ L 0.01-0.08 IMMATURE GRANULOCYTES-RELATIVE PERCENT (BEAKER) (test jlcl=1605) 0 % 0-1 RAD, FOOT, MIN 3 VIEWS, [id number] 19:52:00Reason for exam:->CELLULITISRLE FINAL REPORT Left foot, 07/02/2017 COMPARISON: None Three views of the left foot disclose no evidence of fracture, dislocation or osteomy elitis. No abnormal soft tissue gas collections are seen. There is no evidence o f arthritis or abnormal soft tissue opacities. CONCLUSION: Normal examination. S igned: Finn Costa Verified Date/Time: 07/02/2017 19:52:22 Reading L ocation: [facility] B1 [address] [facility] Reading Room -LACTIC ACID, [id number] 19:50:00* Test Item Value Reference Range Comments POC-LACTIC ACID, VENOUS (BEAKER) (test xdqr=8330) 1.0 mmol/L 0.9-1.7 TESTED AT [place] [id number] [facility] [address] RAD, FOOT, MIN 3 VIEWS, [id number] 19:41:00Reason for exam:->CELLULITISRLE FINAL REPORT CLINICAL HISTORY: Cellulitis COMPARISON: No ne. FINDINGS: 3 views of the right foot are submitted. There is diffuse soft tis damir swelling about the foot and ankle without underlying fracture, malalignment, destructive bony lesion, radiopaque foreign body or soft tissue gas. Please note that the radiographic appearance of osteomyelitis lags behind clinical onset. If of further clinical concern, three-phase bone scan or MRI is recommended. Sig tracey: Nilesh Chávez Verified Date/Time: 07/02/2017 19:41:45 Reading Loc ation: [facility] Reading Room , CHEST, 1 VIEW, NON [id number] 18:51:00Reason for exam:->CELLULITISRLEShould this be performed at the bedside?- >YesFINAL REPORT Portable chest, 07/02/2017 Since 2016, there has been no significant change. The lungs remain clear and expanded. Heart is at the upper limits of normal size. There is no pneumothorax or substantial pleural effusion. Signed: Finn Costa MDReport Verified Date/Time: 07/02/2017 18:51:27 Reading Location: [facility] C[address]W Consult Reading Room B-TYPE NATRIURETIC FACTOR (BNP)2017-07-02 18:23:00* Test Item Value Reference Range Comments B-TYPE NATRIURETIC PEPTIDE (BEAKER) (test nkgr=084) 66 pg/mL 0-100 CREATINE KINASE (CK), TOTAL AND [id number] 18:09:00* Test Item Value Reference Range Comments CREATINE KINASE TOTAL (BEAKER) (test veue=915) 68 U/L 29-200 CREATINE KINASE-MB (BEAKER) (test cjvk=711) 1.1 ng/mL 0.0-6.6 CREATINE KINASE-MB INDEX (BEAKER) (test vshi=177) 1.6 % CK-MB Reference Range:<6.7 Normal6.7-10.0 Borderline>10.0 Abnormal TROPONIN [id number] 18:09:00* Test Item Value Reference Range Comments TROPONIN I (BEAKER) (test fcza=735) < ng/mL 0.00-0.03 Troponin I (TnI) levels must be interpreted in the context of the presenting sym ptoms and the clinical findings. Elevated TnI levels indicate myocardial damage, but are not specific for ischemic heart disease. Elevated TnI levels are seen in patients with other cardiac conditions (including myocarditis and congestive h eart failure), and slight TnI elevations occur in patients with other conditions , including sepsis, renal failure, acidosis, acute neurological disease, and per sistent tachyarrhythmia.BASIC METABOLIC [id number] 16:05:00* Test Item Value Reference Range Comments SODIUM (BEAKER) (test tvec=519) 141 meq/L 136-145 POTASSIUM (BEAKER) (test wnjv=401) 4.5 meq/L 3.5-5.1 CHLORIDE (BEAKER) (test mvdx=855) 107 meq/L 98-107 CO2 (BEAKER) (test ehxx=413) 27 meq/L 22-29 BLOOD UREA NITROGEN (BEAKER) (test qjbb=101) 17 mg/dL 7-21 CREATININE (BEAKER) (test gtdl=152) 0.86 mg/dL 0.57-1.25 GLUCOSE RANDOM (BEAKER) (test sisf=026) 95 mg/dL 70-105 CALCIUM (BEAKER) (test pbxc=183) 9.6 mg/dL 8.4-10.2 EGFR (BEAKER) (test lwpj=3445) 90 mL/min/1.73 sq m ESTIMATED GFR IS NOT ACCURATE CREATININE CLEARANCE IN PREDICTING GLOMERULAR FILTRATION RATE. ESTIMATED GFR IS NOT APPLICABLE FOR DIALYSIS PATIENTS. CBC W/PLT COUNT & AUTO [id number] 15:46:00* Test Item Value Reference Range Comments WHITE BLOOD CELL COUNT (BEAKER) (test ooqq=228) 12.9 K/ L 3.5-10.5 RED BLOOD CELL COUNT (BEAKER) (test gevp=391) 4.46 M/ L 4.63-6.08 HEMOGLOBIN (BEAKER) (test vwbf=435) 13.7 GM/DL 13.7-17.5 HEMATOCRIT (BEAKER) (test aquv=228) 42.6 % 40.1-51.0 MEAN CORPUSCULAR VOLUME (BEAKER) (test ykpc=162) 95.5 fL 79.0-92.2 MEAN CORPUSCULAR HEMOGLOBIN (BEAKER) (test tqhy=793) 30.7 pg 25.7-32.2 MEAN CORPUSCULAR HEMOGLOBIN CONC (BEAKER) (test ktsq=691) 32.2 GM/DL 32.3-36.5 RED CELL DISTRIBUTION WIDTH (BEAKER) (test omkd=337) 14.9 % 11.6-14.4 PLATELET COUNT (BEAKER) (test milj=163) 278 K/CU MM 150-450 MEAN PLATELET VOLUME (BEAKER) (test lqdr=938) 9.8 fL 9.4-12.4 NUCLEATED RED BLOOD CELLS (BEAKER) (test fxbd=921) 0 /100 WBC 0-0 NEUTROPHILS RELATIVE PERCENT (BEAKER) (test ylpm=221) 58 % LYMPHOCYTES RELATIVE PERCENT (BEAKER) (test iiaa=882) 18 % MONOCYTES RELATIVE PERCENT (BEAKER) (test bxwc=084) 17 % EOSINOPHILS RELATIVE PERCENT (BEAKER) (test fdlf=431) 6 % BASOPHILS RELATIVE PERCENT (BEAKER) (test mxmc=097) 1 % NEUTROPHILS ABSOLUTE COUNT (BEAKER) (test axpj=784) 7.49 K/ L 1.78-5.38 LYMPHOCYTES ABSOLUTE COUNT (BEAKER) (test ttqj=336) 2.32 K/ L 1.32-3.57 MONOCYTES ABSOLUTE COUNT (BEAKER) (test oujn=450) 2.18 K/ L 0.30-0.82 EOSINOPHILS ABSOLUTE COUNT (BEAKER) (test jubt=686) 0.74 K/ L 0.04-0.54 BASOPHILS ABSOLUTE COUNT (BEAKER) (test oziq=355) 0.10 K/ L 0.01-0.08 IMMATURE GRANULOCYTES-RELATIVE PERCENT (BEAKER) (test pjfl=8644) 1 % 0-1 BLOOD [id number] 11:01:00* Test Item Value Reference Range Comments CULTURE (BEAKER) (test feok=9771) No growth in 5 days BLOOD [id number] 11:01:00* Test Item Value Reference Range Comments CULTURE (BEAKER) (test ujog=1486) No growth in 5 days POCT-GLUCOSE [id number] 04:54:00* Test Item Value Reference Range Comments POC-GLUCOSE METER (BEAKER) (test xque=9109) 101 mg/dL 70-110 TESTED AT [facility] [address] [facility] [address] POCT-GLUCOSE [id number] 04:48:00* Test Item Value Reference Range Comments POC-GLUCOSE METER (BEAKER) (test dbha=0097) 82 mg/dL 70-110 TESTED AT [facility] [address] [facility] [address] URINE [id number] 11:36:00* Test Item Value Reference Range Comments CULTURE (BEAKER) (test puvv=6043) No growth VANCOMYCIN LEVEL, [id number] 12:59:00* Test Item Value Reference Range Comments VANCOMYCIN TROUGH (BEAKER) (test bqym=929) 12.7 ug/mL 10.0-20.0 VITAMIN B12 AND [id number] 05:51:00* Test Item Value Reference Range Comments VITAMIN B12 (BEAKER) (test lemm=353) 617 pg/mL 213-816 FOLATE (BEAKER) (test ycfl=202) 10.3 ng/mL >=7.0 Effective 06/21/2014: Folate Reference Range ChangeNew: >=7.0 Previous: >=5.4 BASIC METABOLIC [id number] 05:21:00* Test Item Value Reference Range Comments SODIUM (BEAKER) (test wbbi=515) 137 meq/L 136-145 POTASSIUM (BEAKER) (test ukzf=062) 4.3 meq/L 3.5-5.1 CHLORIDE (BEAKER) (test tnlb=495) 108 meq/L 98-107 CO2 (BEAKER) (test pfvd=026) 21 meq/L 22-29 BLOOD UREA NITROGEN (BEAKER) (test uxtt=830) 14 mg/dL 7-21 CREATININE (BEAKER) (test bhts=676) 0.90 mg/dL 0.57-1.25 GLUCOSE RANDOM (BEAKER) (test urje=926) 78 mg/dL 70-105 CALCIUM (BEAKER) (test ydhe=016) 9.1 mg/dL 8.4-10.2 EGFR (BEAKER) (test pxfo=1954) 86 mL/min/1.73 sq m ESTIMATED GFR IS NOT ACCURATE CREATININE CLEARANCE IN PREDICTING GLOMERULAR FILTRATION RATE. ESTIMATED GFR IS NOT APPLICABLE FOR DIALYSIS PATIENTS. CBC W/PLT COUNT & AUTO [id number] 04:56:00* Test Item Value Reference Range Comments WHITE BLOOD CELL COUNT (BEAKER) (test botl=721) 9.8 K/ L 4.0-10.0 RED BLOOD CELL COUNT (BEAKER) (test vgje=020) 4.67 M/ L 4.20-5.80 HEMOGLOBIN (BEAKER) (test uggg=797) 14.6 GM/DL 13.0-16.8 HEMATOCRIT (BEAKER) (test dbez=897) 46.1 % 40.0-50.0 MEAN CORPUSCULAR VOLUME (BEAKER) (test nxwk=245) 98.7 fL 82.0-98.0 MEAN CORPUSCULAR HEMOGLOBIN (BEAKER) (test bgll=492) 31.3 pg 27.0-33.0 MEAN CORPUSCULAR HEMOGLOBIN CONC (BEAKER) (test hcpf=153) 31.7 GM/DL 32.0-36.0 RED CELL DISTRIBUTION WIDTH (BEAKER) (test tjuy=087) 14.0 % 10.3-14.2 PLATELET COUNT (BEAKER) (test wstg=250) 227 K/CU MM 150-430 MEAN PLATELET VOLUME (BEAKER) (test opzk=245) 7.3 fL 6.5-10.5 NUCLEATED RED BLOOD CELLS (BEAKER) (test wmnr=500) 0 /100 WBC 0-0 NEUTROPHILS RELATIVE PERCENT (BEAKER) (test medm=085) 49 % LYMPHOCYTES RELATIVE PERCENT (BEAKER) (test lqka=637) 24 % MONOCYTES RELATIVE PERCENT (BEAKER) (test wtor=555) 14 % EOSINOPHILS RELATIVE PERCENT (BEAKER) (test xvnp=246) 11 % BASOPHILS RELATIVE PERCENT (BEAKER) (test hmlm=099) 1 % NEUTROPHILS ABSOLUTE COUNT (BEAKER) (test nrtv=194) 4.82 K/ L 1.80-8.00 LYMPHOCYTES ABSOLUTE COUNT (BEAKER) (test djyy=871) 2.33 K/ L 1.48-4.50 MONOCYTES ABSOLUTE COUNT (BEAKER) (test jmsd=491) 1.40 K/ L 0.00-1.30 EOSINOPHILS ABSOLUTE COUNT (BEAKER) (test fxor=807) 1.11 K/ L 0.00-0.50 BASOPHILS ABSOLUTE COUNT (BEAKER) (test uqfx=056) 0.11 K/ L 0.00-0.20 0.00POCT-GLUCOSE [id number] 21:49:00* Test Item Value Reference Range Comments POC-GLUCOSE METER (BEAKER) (test npeh=7525) 116 mg/dL 70-110 TESTED AT [place] [id number] [facility] [address] POCT-GLUCOSE [id number] 15:49:00* Test Item Value Reference Range Comments POC-GLUCOSE METER (BEAKER) (test rfan=7232) 101 mg/dL 70-110 TESTED AT [place] [id number] [facility] [address] URINALYSIS W/ [id number] 13:15:00* Test Item Value Reference Range Comments COLOR (BEAKER) (test iwmw=865) Light Yellow CLARITY (BEAKER) (test yjpk=958) Clear SPECIFIC GRAVITY UA (BEAKER) (test lajm=700) 1.008 1.001-1.035 PH UA (BEAKER) (test vvaf=835) 7.0 5.0-8.0 PROTEIN UA (BEAKER) (test rpzs=318) Negative Negative GLUCOSE UA (BEAKER) (test krml=800) Negative Negative KETONES UA (BEAKER) (test ftoj=911) Negative Negative BILIRUBIN UA (BEAKER) (test nquv=340) Negative Negative BLOOD UA (BEAKER) (test fzcw=556) Negative Negative NITRITE UA (BEAKER) (test ilky=782) Negative Negative LEUKOCYTE ESTERASE UA (BEAKER) (test kwlo=689) Negative Negative UROBILINOGEN UA (BEAKER) (test tcdn=403) 0.2 mg/dL 0.2-1.0 RBC UA (BEAKER) (test hpdm=134) < /HPF WBC UA (BEAKER) (test wlrl=838) 0 /HPF MUCUS (BEAKER) (test mtcr=3048) Rare SQUAMOUS EPITHELIAL (BEAKER) (test nics=260) < /HPF SOURCE(BEAKER) (test jfbh=4771) Urine, Clean Catch HEMOGLOBIN [id number] 09:45:00* Test Item Value Reference Range Comments HEMOGLOBIN A1C (BEAKER) (test tvlk=037) 5.9 % 4.3-6.1 POCT-GLUCOSE [id number] 07:53:00* Test Item Value Reference Range Comments POC-GLUCOSE METER (BEAKER) (test ipje=4367) 89 mg/dL 70-110 TESTED AT [facility] [address] [facility] [address] [id number] 05:27:00* Test Item Value Reference Range Comments PHOSPHORUS (BEAKER) (test tgfp=087) 4.0 mg/dL 2.3-4.7 [id number] 05:27:00* Test Item Value Reference Range Comments MAGNESIUM (BEAKER) (test gofy=706) 1.6 mg/dL 1.6-2.6 BASIC METABOLIC [id number] 05:27:00* Test Item Value Reference Range Comments SODIUM (BEAKER) (test usag=438) 139 meq/L 136-145 POTASSIUM (BEAKER) (test gtmq=081) 3.8 meq/L 3.5-5.1 CHLORIDE (BEAKER) (test wobj=499) 109 meq/L 98-107 CO2 (BEAKER) (test ahrv=025) 21 meq/L 22-29 BLOOD UREA NITROGEN (BEAKER) (test tyjt=485) 12 mg/dL 7-21 CREATININE (BEAKER) (test yvyy=755) 0.72 mg/dL 0.57-1.25 GLUCOSE RANDOM (BEAKER) (test ulzu=669) 75 mg/dL 70-105 CALCIUM (BEAKER) (test akxy=934) 8.8 mg/dL 8.4-10.2 EGFR (BEAKER) (test vogy=9450) 111 mL/min/1.73 sq m ESTIMATED GFR IS NOT ACCURATE CREATININE CLEARANCE IN PREDICTING GLOMERULAR FILTRATION RATE. ESTIMATED GFR IS NOT APPLICABLE FOR DIALYSIS PATIENTS. LIPID [id number] 05:27:00* Test Item Value Reference Range Comments TRIGLYCERIDES (BEAKER) (test vvve=022) 47 mg/dL CHOLESTEROL (BEAKER) (test hytn=615) 99 mg/dL HDL CHOLESTEROL (BEAKER) (test dhlk=596) 34 mg/dL LDL CHOLESTEROL CALCULATED (BEAKER) (test osqt=945) 56 mg/dL Triglyceride Reference Range: Low Risk <150 Borderline 150-199 High Risk 200-499 Very High Risk >=500Cholesterol Reference Range: Low Risk <200 Borderline 200-239 High Risk >240HDL Cholesterol Reference Range: Low Risk >=60 High Risk <40LDL Cholesterol Reference Range: Optimal <100 Near Optimal 100-129 Borderline 130-159 High 160-189 Very High >=190 HEPATIC FUNCTION [id number] 05:27:00* Test Item Value Reference Range Comments TOTAL PROTEIN (BEAKER) (test syqn=872) 6.9 gm/dL 6.0-8.3 ALBUMIN (BEAKER) (test fvjd=3220) 2.9 g/dL 3.5-5.0 BILIRUBIN TOTAL (BEAKER) (test guvo=656) 0.8 mg/dL 0.2-1.2 BILIRUBIN DIRECT (BEAKER) (test fljh=337) 0.4 mg/dL 0.1-0.5 ALKALINE PHOSPHATASE (BEAKER) (test tezg=134) 61 U/L 40-150 AST (SGOT) (BEAKER) (test wpok=339) 22 U/L 5-34 ALT (SGPT) (BEAKER) (test jlgh=630) 13 U/L 6-55 C-REACTIVE [id number] 05:27:00* Test Item Value Reference Range Comments C-REACTIVE PROTEIN (BEAKER) (test aymz=984) 0.34 mg/dL 0.00-0.50 CBC W/PLT COUNT & AUTO [id number] 05:08:00* Test Item Value Reference Range Comments WHITE BLOOD CELL COUNT (BEAKER) (test uejo=638) 9.9 K/ L 4.0-10.0 RED BLOOD CELL COUNT (BEAKER) (test exge=419) 4.23 M/ L 4.20-5.80 HEMOGLOBIN (BEAKER) (test uajf=663) 13.5 GM/DL 13.0-16.8 HEMATOCRIT (BEAKER) (test gtwz=408) 42.2 % 40.0-50.0 MEAN CORPUSCULAR VOLUME (BEAKER) (test ieox=851) 99.6 fL 82.0-98.0 MEAN CORPUSCULAR HEMOGLOBIN (BEAKER) (test ajil=293) 32.0 pg 27.0-33.0 MEAN CORPUSCULAR HEMOGLOBIN CONC (BEAKER) (test bvjk=418) 32.1 GM/DL 32.0-36.0 RED CELL DISTRIBUTION WIDTH (BEAKER) (test bmcp=814) 12.3 % 10.3-14.2 PLATELET COUNT (BEAKER) (test yena=441) 258 K/CU MM 150-430 MEAN PLATELET VOLUME (BEAKER) (test zwja=316) 7.0 fL 6.5-10.5 NUCLEATED RED BLOOD CELLS (BEAKER) (test liai=254) 0 /100 WBC 0-0 NEUTROPHILS RELATIVE PERCENT (BEAKER) (test sdey=322) 46 % LYMPHOCYTES RELATIVE PERCENT (BEAKER) (test fztd=734) 27 % MONOCYTES RELATIVE PERCENT (BEAKER) (test vaxy=015) 15 % EOSINOPHILS RELATIVE PERCENT (BEAKER) (test nhad=737) 11 % BASOPHILS RELATIVE PERCENT (BEAKER) (test xskk=539) 1 % NEUTROPHILS ABSOLUTE COUNT (BEAKER) (test hbrz=718) 4.57 K/ L 1.80-8.00 LYMPHOCYTES ABSOLUTE COUNT (BEAKER) (test ztcs=158) 2.67 K/ L 1.48-4.50 MONOCYTES ABSOLUTE COUNT (BEAKER) (test xkil=353) 1.49 K/ L 0.00-1.30 EOSINOPHILS ABSOLUTE COUNT (BEAKER) (test bfgb=909) 1.06 K/ L 0.00-0.50 BASOPHILS ABSOLUTE COUNT (BEAKER) (test qbzb=716) 0.07 K/ L 0.00-0.20 0.00PT/[id number] 05:07:00* Test Item Value Reference Range Comments PROTIME (BEAKER) (test cvji=816) 15.1 seconds 11.7-14.7 INR (BEAKER) (test xlsn=273) 1.2 <=5.9 PARTIAL THROMBOPLASTIN TIME (BEAKER) (test uulq=943) 37.7 seconds 22.5-36.0 RECOMMENDED COUMADIN/WARFARIN INR THERAPY RANGESSTANDARD DOSE: 2.0 - 3.0 Inclu nikki: PROPHYLAXIS for venous thrombosis, systemic embolization; TREATMENT for zahira ous thrombosis and/or pulmonary embolus.HIGH RISK: Target INR is 2.5-3.5 for pat ients with mechanical heart valves.POCT-GLUCOSE [id number] 21:39:00* Test Item Value Reference Range Comments POC-GLUCOSE METER (BEAKER) (test frdi=9208) 165 mg/dL 70-110 TESTED AT [place] [address] POCT-GLUCOSE [id number] 19:26:00* Test Item Value Reference Range Comments POC-GLUCOSE METER (BEAKER) (test xvpo=1427) 156 mg/dL 70-110 TESTED AT [place] [address] POCT-GLUCOSE [id number] 19:10:00* Test Item Value Reference Range Comments POC-GLUCOSE METER (BEAKER) (test zuso=8594) 59 mg/dL 70-110 TESTED AT [place] [address]
--- OUTSIDE RECORDS SUMMARY | 2018-07-11 18:33 | XMS REPORT | Clinical Summary ---
Author Author RICARDO [facility] Address Unknown Phone Unavailable Care Team Providers Care Railroad Signal Technician Name Role Phone Tarsha Gold MD PCP Unavailable Allergies Comments Active Allergy Reactions Severity Noted Date Clindamycin Rash Low 01/09/2017 Clotrimazole Rash Low 01/09/2017 Codeine Rash Low 01/09/2017 Ramipril Rash Low 01/09/2017 Medications End Date Status Medication Sig Dispensed Refills Start Date Active clopidogrel (PLAVIX) 75 Take 75 mg by 0 mg tablet mouth daily. Active glimepiride (AMARYL) 1 MG Take 1 mg by 0 tablet mouth every morning before breakfast. Active atorvastatin (LIPITOR) 10 Take 10 mg by 0 MG tablet mouth daily. 07/19/2018 Active QUEtiapine (SEROQUEL) 50 Take 1 tablet 50 tablet 1 MG tablet (50 mg total) 8 by mouth nightly for 30 days. Active spironolactone Take 25 mg by 0 (ALDACTONE) 25 MG tablet mouth. 06/26/2018 amoxicillin-clavulanate Take 1 tablet 21 tablet 0 (AUGMENTIN) 500-125 mg by mouth 3 8 per tablet (three) times daily for 7 days. 06/26/2018 mINOCYCLine Take 1 14 capsule 0 (MINOCIN,DYNACIN) 100 MG capsule (100 8 capsule mg total) by mouth 2 (two) times daily for 7 days. Active Problems Problem Noted Date Morbid obesity 06/17/2018 Cellulitis 06/16/2018 Pain in both lower legs 06/16/2018 Cellulitis of lower extremity, unspecified laterality 07/02/2017 Cellulitis of right foot 01/09/2017 Diabetes mellitus with foot ulcer and gangrene 01/09/2017 DM type 2 causing vascular disease 01/09/2017 HTN (hypertension), benign 01/09/2017 Hyperlipemia 01/09/2017 PAD (peripheral artery disease) 01/09/2017 Encounters Care Team Description Date Type Specialty Lea Snyder MD Rehman, Javed, MD Lothian, Amy Catherine, MD Pain in both lower legs (Primary Dx); Cellulitis of left lower extremity; Intellectual disability; History of diabetes mellitus 06/16/2018 [facility] General Internal Medicine - Encounter 06/19/2018 06/16/2018 Travel Stephen Armas MD Acute chest pain (Primary Dx); Left-sided chest wall pain; DM type 2 causing vascular disease (HCC); Hyperlipidemia, unspecified hyperlipidemia type; Cognitive attention deficit; Essential hypertension 03/19/2018 Emergency Emergency Medicine 03/19/2018 Orders Only General Internal Medicine after 07/10/2017 Immunizations Name Dates Previously Given Next Due Influenza Four-QIV Non-PF 06/17/2018 5+ YR Family History Medical History Relation Name Comments Diabetes Brother Hypertension Brother Diabetes Father Kidney disease Father Stroke Mother Diabetes Sister Macular degeneration Sister Cancer Sister Diabetes Sister Relation Name Status Comments Brother Father Mother cataract Sister Sister Sister Social History Date Tobacco Use Types Packs/Day Years Used Current Every Day Smoker Smokeless Tobacco: Current User Alcohol Use Drinks/Week oz/Week Comments No Sex Assigned at Date Recorded Not on file Industry Job Start Date Occupation Not on file Not on file Not on file Travel End Travel History Travel Start No recent travel history available. Last Filed Vital Signs Time Taken Vital Sign Reading 06/19/2018 11:28 AM ROSS CARRIER DRIVER Blood Pressure 105/61 06/19/2018 11:34 AM ROSS CARRIER DRIVER Pulse 50 06/19/2018 11:28 AM ROSS CARRIER DRIVER Temperature 36.4 C (97.6 F) 06/19/2018 11:34 AM ROSS CARRIER DRIVER Respiratory Rate 18 06/19/2018 11:34 AM ROSS CARRIER DRIVER Oxygen Saturation 98% - Inhaled Oxygen - Concentration 06/16/2018 7:54 PM ROSS CARRIER DRIVER Weight 117.9 kg (260 lb) 06/16/2018 7:54 PM ROSS CARRIER DRIVER Height 167.6 cm (5' 6") 06/16/2018 7:54 PM ROSS CARRIER DRIVER Body Mass Index 41.97 Plan of Treatment Not on file Procedures Comments Procedure Name Priority Date/Time Associated Diagnosis POCT-GLUCOSE METER Routine 06/19/2018 11:43 AM ROSS CARRIER DRIVER POCT-GLUCOSE METER Routine 06/19/2018 7:18 AM ROSS CARRIER DRIVER CBC W/PLT COUNT & AUTO Routine 06/19/2018 DIFFERENTIAL 4:36 AM ROSS CARRIER DRIVER VANCOMYCIN LEVEL, RANDOM Routine 06/19/2018 4:36 AM ROSS CARRIER DRIVER BASIC METABOLIC PANEL (7) Routine 06/19/2018 4:36 AM ROSS CARRIER DRIVER CBC W/PLT COUNT & AUTO Routine 06/19/2018 DIFFERENTIAL 4:36 AM ROSS CARRIER DRIVER POCT-GLUCOSE METER Routine 06/18/2018 9:57 PM ROSS CARRIER DRIVER POCT-GLUCOSE METER Routine 06/18/2018 4:52 PM ROSS CARRIER DRIVER VANCOMYCIN LEVEL, RANDOM STAT 06/18/2018 2:36 PM ROSS CARRIER DRIVER POCT-GLUCOSE METER Routine 06/18/2018 12:36 PM ROSS CARRIER DRIVER POCT-GLUCOSE METER Routine 06/18/2018 7:16 AM ROSS CARRIER DRIVER BASIC METABOLIC PANEL (7) Routine 06/18/2018 6:19 AM ROSS CARRIER DRIVER CBC W/PLT COUNT & AUTO Routine 06/18/2018 DIFFERENTIAL 5:20 AM ROSS CARRIER DRIVER CBC W/PLT COUNT & AUTO Routine 06/18/2018 DIFFERENTIAL 5:20 AM ROSS CARRIER DRIVER VANCOMYCIN LEVEL, TROUGH Timed 06/18/2018 5:20 AM ROSS CARRIER DRIVER CBC W/PLT COUNT & AUTO Routine 06/18/2018 DIFFERENTIAL 5:20 AM ROSS CARRIER DRIVER CBC W/PLT COUNT & AUTO Routine 06/18/2018 DIFFERENTIAL 5:20 AM ROSS CARRIER DRIVER POCT-GLUCOSE METER Routine 06/17/2018 9:28 PM ROSS CARRIER DRIVER POCT-GLUCOSE METER Routine 06/17/2018 5:41 PM ROSS CARRIER DRIVER POCT-GLUCOSE METER Routine 06/17/2018 11:45 AM ROSS CARRIER DRIVER VENOUS DOPPLER LEGS Routine 06/17/2018 BILATERAL 11:04 AM ROSS CARRIER DRIVER POCT-GLUCOSE METER Routine 06/17/2018 8:25 AM ROSS CARRIER DRIVER BLOOD GAS, VENOUS Routine 06/17/2018 6:48 AM ROSS CARRIER DRIVER CBC W/PLT COUNT & AUTO Routine 06/17/2018 DIFFERENTIAL 4:43 AM ROSS CARRIER DRIVER COMPREHENSIVE METABOLIC Routine 06/17/2018 PANEL 4:43 AM ROSS CARRIER DRIVER CBC W/PLT COUNT & AUTO Routine 06/17/2018 DIFFERENTIAL 4:43 AM ROSS CARRIER DRIVER BLOOD CULTURE Routine 06/17/2018 4:43 AM ROSS CARRIER DRIVER POCT-GLUCOSE METER Routine 06/16/2018 9:18 PM ROSS CARRIER DRIVER XR CHEST 2 VIEWS STAT 06/16/2018 5:22 PM ROSS CARRIER DRIVER XR FOOT LEFT 3 VIEW STAT 06/16/2018 5:22 PM ROSS CARRIER DRIVER XR FOOT RIGHT 3 VIEW STAT 06/16/2018 5:22 PM ROSS CARRIER DRIVER CBC W/PLT COUNT & AUTO STAT 06/16/2018 DIFFERENTIAL 4:39 PM ROSS CARRIER DRIVER BASIC METABOLIC PANEL (7) STAT 06/16/2018 4:39 PM ROSS CARRIER DRIVER CBC W/PLT COUNT & AUTO STAT 06/16/2018 DIFFERENTIAL 4:39 PM ROSS CARRIER DRIVER BLOOD CULTURE STAT 06/16/2018 4:39 PM ROSS CARRIER DRIVER BLOOD CULTURE STAT 06/16/2018 4:39 PM ROSS CARRIER DRIVER ED ECG INTERPRETATION Routine 03/25/2018 1:24 PM CDT XR CHEST 1 VIEW STAT 03/19/2018 PORTABLE/BEDSIDE 3:39 PM CDT CBC W/PLT COUNT & AUTO STAT 03/19/2018 DIFFERENTIAL 3:20 PM CDT B-TYPE NATRIURETIC FACTOR STAT 03/19/2018 (BNP) 3:20 PM CDT RAPID TROPONIN I STAT 03/19/2018 3:20 PM CDT RAPID CK-MB STAT 03/19/2018 3:20 PM CDT LIPASE STAT 03/19/2018 3:20 PM CDT HEPATIC FUNCTION PANEL STAT 03/19/2018 3:20 PM CDT BASIC METABOLIC PANEL (7) STAT 03/19/2018 3:20 PM CDT CBC W/PLT COUNT & AUTO STAT 03/19/2018 DIFFERENTIAL 3:20 PM CDT ECG 12-LEAD Routine 03/19/2018 2:34 PM CDT Procedure Note - Interface, External Ris In - 03/19/2018 10:15 PM CDT Ventricula r Rate 56 BPM Atrial Rate 56 BPM P-R Interval 204 ms QRS Duration 106 ms Q-T Interval 438 ms QTC Calculatio n(Bazett) 422 ms P Drummond 83 degrees R Drummond 11 degrees T Drummond 21 degrees Sinus bradycardi a Possible Lateral infarct (cited on or before ) Abnormal ECG When compared with ECG of 17:38, No significan t change was found ECG 12-LEAD STAT 03/19/2018 2:34 PM CDT after 07/10/2017 Results * POC-Glucose meter (06/19/2018 11:43 AM ROSS CARRIER DRIVER) Only the most recent of 11 results within the time period is included. POC-Glucose Meter 121 (H)Comment: TESTED AT 70 - 110 mg/dL [facility] [address] [facility] [address] Specimen Blood Performing Organization Address City/State/Zipcode Phone Number [place] [phone] [place] [address] [facility] * CBC with platelet count + automated diff (06/19/2018 4:36 AM ROSS CARRIER DRIVER) Only the most recent of 6 results within the time period is included. WBC 8.6 3.5 - 10.5 K/L [facility] RBC 4.09 (L) 4.63 - 6.08 M/L [facility] Hemoglobin 13.0 (L) 13.7 - 17.5 GM/DL [facility] Hematocrit 40.4 40.1 - 51.0 % [facility] MCV 98.8 (H) 79.0 - 92.2 fL [facility] MCH 31.8 25.7 - 32.2 pg [facility] MCHC 32.2 (L) 32.3 - 36.5 GM/DL [facility] RDW 15.1 (H) 11.6 - 14.4 % [facility] Platelets 234 150 - 450 K/CU MM [facility] MPV 9.9 9.4 - 12.4 fL [facility] nRBC 0 0 - 0 /100 WBC [facility] % Neutros 52 % [facility] % Lymphs 20 % [facility] % Monos 17 % [facility] % Eos 10 % [facility] % Baso 1 % [facility] # Neutros 4.50 1.78 - 5.38 K/L [facility] # Lymphs 1.74 1.32 - 3.57 K/L [facility] # Monos 1.45 (H) 0.30 - 0.82 K/L [facility] # Eos 0.84 (H) 0.04 - 0.54 K/L [facility] # Baso 0.07 0.01 - 0.08 K/L [facility] Immature 0 0 - 1 % [facility] Granulocytes-Relative [facility] Specimen Blood - Arm, Right Performing Organization Address City/[facility] Phone Number [address] [phone] [facility] * Vancomycin level, random (06/19/2018 4:36 AM ROSS CARRIER DRIVER) Only the most recent of 2 results within the time period is included. Vancomycin Rm 50.8 ug/mL [facility] Specimen Blood - Arm, Right Narrative Performed At Reference Range: No Normals [facility] Performing Organization Address [facility] Phone Number [address] [address] [facility] * Basic metabolic panel (06/19/2018 4:36 AM ROSS CARRIER DRIVER) Only the most recent of 4 results within the time period is included. Sodium 137 136 - 145 meq/L [facility] Potassium 4.3 3.5 - 5.1 meq/L [facility] Chloride 105 98 - 107 meq/L [facility] CO2 24 22 - 29 meq/L [facility] BUN 12 7 - 21 mg/dL [facility] Creatinine 0.85 0.57 - 1.25 mg/dL [facility] Glucose 67 (L) 70 - 105 mg/dL [facility] Calcium 9.1 8.4 - 10.2 mg/dL [facility] EGFR 91Comment: ESTIMATED GFR IS mL/min/1.73 sq m [facility] NOT ACCURATE CREATININE [facility] CLEARANCE IN PREDICTING GLOMERULAR FILTRATION RATE. ESTIMATED GFR IS NOT APPLICABLE FOR DIALYSIS PATIENTS. Specimen Blood - Arm, Right Performing Organization Address City/[facility] Phone Number [facility] [address] [place] [address] [facility] * Vancomycin level, trough (06/18/2018 5:20 AM ROSS CARRIER DRIVER) Vancomycin Tr 54.7 (HH) 10.0 - 20.0 ug/mL [facility] Specimen Blood - Arm, Right Performing Organization Address City/[facility]/Zipcode Phone Number [facility] [address] [place] [address] [facility] * Venous doppler legs bilateral (06/17/2018 11:04 AM ROSS CARRIER DRIVER) Ejection Fraction [facility] ECHO HEART[facility] MKCKESSON CPACS Impressions Performed At Right Impression [facility] ECHO HEARTLAB 1. There is no deep venous obstruction in the common femoral, profunda MKCKESSON CPACS femoral, femoral, popliteal, 2, The posterior tibial and peroneal veins are not visualized due to excessive skin thickening. 3. There is no superficial venous obstruction in the great saphenous vein. Left Impression 1. There is no deep venous obstruction in the common femoral, profunda femoral, femoral, popliteal, 2, The posterior tibial and peroneal veins are not visualized due to excessive skin thickening. 3. There is no superficial venous obstruction in the great saphenous vein. Conclusions Summary Venous duplex imaging and compression of the bilateral lower extremities were performed. The veins were adequately visualized. The bilateral venous systems were patent and compressible with no evidence of thrombus where visualized. The venous Doppler waveforms were phasic with respiration . Signature Velocities are measured in cm/s ; Diameters are measured in cm Narrative Performed At [facility] - Lower Extremities DVT Study [facility] E[facility]ART[facility] Demographics [facility] Patient Name IRVING RAODate of Study 06/17/2018 [id number] Age 62 Visit Number [id number] GenderMale Accession Number [id number] Date of 1955 [facility] Shorty OdomRoom Number [id number] Physician Estrella Mckinney.Guzman Almonte RVT, ARS Physician MD Procedure Type of Study: Veins: Lower Extremities DVT Study, VENOUS DOPPLER LEG, BILATERAL. Indications for Study:Leg Edema. Patient Status:Routine. Study Location:Vascular Lab. Technical Quality:Technically Difficult. Risk Factors History of Disease + +----+ + !Diagnosis !Date!Comments ! + +----+ + !History/Risk!!DM, HLD, PVD, HTN, Morbid Obesity, Leg! !Factors:!!cellulitis ! + +----+ + Procedure Note Interface, External Ris In - 06/17/2018 9:10 PM ROSS CARRIER DRIVER [facility] - Lower Extremities DVT Study Demographics Patient Name IRVING RAO Date of Study 06/17/2018 Age 62 Visit Number [id number] Gender Male Accession Number [id number] Date of 1955 Referring Garrison Odom Room Number [id number] Physician Buhr Dresser Michael Mckinney. Interpreting Simin Almonte, NANCYT, RIAS Physician MD Procedure Type of Study: Veins: Lower Extremities DVT Study, VENOUS DOPPLER LEG, BILATERAL. Indications for Study:Leg Edema. Patient Status:Routine. Study Location:Vascular Lab. Technical Quality:Technically Difficult. Risk Factors History of Disease + +----+ + !Diagnosis !Date!Comments ! + +----+ + !History/Risk ! !DM, HLD, PVD, HTN, Morbid Obesity, Leg ! !Factors: ! !cellulitis ! + +----+ + Impressions Right Impression 1. There is no deep venous obstruction in the common femoral, profunda femoral, femoral, popliteal, 2, The posterior tibial and peroneal veins are not visualized due to excessive skin thickening. 3. There is no superficial venous obstruction in the great saphenous vein. Left Impression 1. There is no deep venous obstruction in the common femoral, profunda femoral, femoral, popliteal, 2, The posterior tibial and peroneal veins are not visualized due to excessive skin thickening. 3. There is no superficial venous obstruction in the great saphenous vein. Conclusions Summary Venous duplex imaging and compression of the bilateral lower extremities were performed. The veins were adequately visualized. The bilateral venous systems were patent and compressible with no evidence of thrombus where visualized. The venous Doppler waveforms were phasic with respiration . Signature Velocities are measured in cm/s ; Diameters are measured in cm Performing Organization Address City/[facility] Phone Number [facility] ECHO HEART[facility] MK[facility] * Blood gas, venous (06/17/2018 6:48 AM ROSS CARRIER DRIVER) pH, Esau 7.30 (L) 7.32 - 7.42 [facility] pCO2, Esau 54 (H) 41 - 51 mmHg [facility] pO2, Esau 202 (H) 25 - 40 mmHg [facility] O2 Sat, Esau 99.2 (H) 40.0 - 70.0 % [facility] HCO3, Esau 26 21 - 29 mmol/L [facility] Base Excess, Esau -1.1 -2.0 - 3.0 mmol/L [facility] Patient Temperature 38.0 C [facility] FIO2 24.0 % [facility] Specimen Blood - Arm, Right Performing Organization Address City/[facility]/Zipcode Phone Number [facility] [address] [place] [address] [facility] * Blood culture #1 (06/17/2018 4:43 AM ROSS CARRIER DRIVER) Only the most recent of 3 results within the time period is included. Result No growth in 5 days [facility] Specimen Blood - Arm, Left Performing Organization Address City/State/Zipcode Phone Number [facility] [address] [place] [address] [facility] * Comprehensive metabolic panel (06/17/2018 4:43 AM ROSS CARRIER DRIVER) Protein, Total 7.5Comment: Specimen 6.0 - 8.3 gm/dL [facility] moderately hemolyzed [facility] Albumin 2.7 (L)Comment: Specimen 3.5 - 5.0 g/dL [facility] moderately hemolyzed [facility] Alkaline Phosphatase 55 40 - 150 U/L [facility] Total Bilirubin 1.0Comment: Specimen 0.2 - 1.2 mg/dL [facility] hemolyzed [facility] Sodium 142 136 - 145 meq/L [facility] Potassium 4.7Comment: Specimen 3.5 - 5.1 meq/L [facility] hemolyzed [facility] Chloride 110 (H) 98 - 107 meq/L [facility] CO2 28 22 - 29 meq/L [facility] BUN 13 7 - 21 mg/dL [facility] Creatinine 0.81Comment: Specimen 0.57 - 1.25 mg/dL [facility] hemolyzed [facility] Glucose 86 70 - 105 mg/dL [facility] Calcium 9.1 8.4 - 10.2 mg/dL [facility] AST 40 (H)Comment: Specimen 5 - 34 U/L [facility] hemolyzed [facility] ALT 12Comment: Specimen moderately 6 - 55 U/L [facility] EGFR 97Comment: ESTIMATED GFR IS mL/min/1.73 sq m [facility] NOT ACCURATE CREATININE [facility] CLEARANCE IN PREDICTING GLOMERULAR FILTRATION RATE. ESTIMATED GFR IS NOT APPLICABLE FOR DIALYSIS PATIENTS. Specimen Blood - Arm, Left Performing Organization Address City/State/Zipcode Phone Number [facility] [phone] [place] [address] [facility] * XR chest 2 views (06/16/2018 5:22 PM ROSS CARRIER DRIVER) Narrative Performed At FINAL REPORT GE RIS EXAM: PA and lateral chest radiograph COMPARISON: March 19, 2018 CLINICAL HISTORY: Wheezing FINDINGS: There is no evidence of pulmonary consolidation, pleural effusion, or pneumothorax. There is interval improvement in left basilar pulmonary opacity which may represent resolved atelectasis versus consolidation. The cardiac size is within normal limits. The regional osseous structures are unremarkable. Signed: Tameka Cervantes MD Report Verified Date/Time:06/16/2018 17:27:07 Reading Location: [address] Consult Reading Room Procedure Note Interface, External Ris In - 06/16/2018 5:29 PM ROSS CARRIER DRIVER FINAL REPORT EXAM: PA and lateral chest radiograph COMPARISON: March 19, 2018 CLINICAL HISTORY: Wheezing FINDINGS: There is no evidence of pulmonary consolidation, pleural effusion, or pneumothorax. There is interval improvement in left basilar pulmonary opacity which may represent resolved atelectasis versus consolidation. The cardiac size is within normal limits. The regional osseous structures are unremarkable. Signed: Tameka Cervantes MD Report Verified Date/Time: 06/16/2018 17:27:07 Reading Location: [facility] C013 Consult Reading Room Performing Organization Address [facility] Phone Number RIS * XR foot 3 views right (06/16/2018 5:22 PM ROSS CARRIER DRIVER) Narrative Performed At FINAL REPORT GE RIS EXAM: Right foot 3 views COMPARISON: July 02, 2017 CLINICAL HISTORY: Foot pain FINDINGS: There is no evidence for acute fracture or malalignment. The articular joints are within normal limits. Diffuse soft tissue prominence is again noted which may represent edema versus post inflammatory changes. Recommend clinical correlation. Signed: Tameka Cervantes MD Report Verified Date/Time:06/16/2018 17:29:59 Reading Location: [address] Consult Reading Room Procedure Note Interface, External Ris In - 06/16/2018 5:32 PM ROSS CARRIER DRIVER FINAL REPORT EXAM: Right foot 3 views COMPARISON: July 02, 2017 CLINICAL HISTORY: Foot pain FINDINGS: There is no evidence for acute fracture or malalignment. The articular joints are within normal limits. Diffuse soft tissue prominence is again noted which may represent edema versus post inflammatory changes. Recommend clinical correlation. Signed: Tameka Cervantes MD Report Verified Date/Time: 06/16/2018 17:29:59 Reading Location: [address] Consult Reading Room Performing Organization Address City/State/Zipcode Phone Number GE RIS * XR foot 3 views left (06/16/2018 5:22 PM ROSS CARRIER DRIVER) Narrative Performed At FINAL REPORT GE RIS EXAM: Left foot 3 views COMPARISON: July 02, 2017 Clinical history: Foot pain FINDINGS: Diffuse soft tissue swelling is again noted throughout the entire foot and ankle which may represent edema versus postinflammatory changes. There is no evidence of acute fracture or malalignment. The articular joints are within normal limits. Signed: Tameka Cervantes MD Report Verified Date/Time:06/16/2018 17:31:31 Reading Location: [facility] C0[facility] Consult Reading Room Procedure Note Interface, External Ris In - 06/16/2018 5:33 PM ROSS CARRIER DRIVER FINAL REPORT EXAM: Left foot 3 views COMPARISON: July 02, 2017 Clinical history: Foot pain FINDINGS: Diffuse soft tissue swelling is again noted throughout the entire foot and ankle which may represent edema versus postinflammatory changes. There is no evidence of acute fracture or malalignment. The articular joints are within normal limits. Signed: Tameka Cervantes MD Report Verified Date/Time: 06/16/2018 17:31:31 Reading Location: [address] Consult Reading Room Performing Organization Address City/State/Zipcode Phone Number [facility] * ED ECG Interpretation (03/25/2018 1:24 PM CDT) Narrative Performed At Stephen Armas MD 03/25/20181:24 PM ECG/EKG Interpretation Date/Time: 03/19/2018 2:34 PM Performed by: STEPHEN ARMAS Authorized by: STEPHEN ARMAS The ECG was interpreted by ED physician. This ECG was compared with previous ECG (no significant change vs 07/02/2017 )(s).The ECG is interpreted as sinus rhythm. Rate is normal rate. Heart rate is 56 BPM. Conduction: conduction normal. ST segments normal. T waves normal. Drummond is normal. Q-waves are present in lead(s) aVL and I. Clinical Impression: abnormal ECGECG reviewed and does not meet STEMI criteria. Patient tolerance: Patient tolerated the procedure well with no immediate complications * XR chest 1 view portable / bedside (03/19/2018 3:39 PM CDT) Narrative Performed At FINAL REPORT [facility] TECHNIQUE: Frontal chest radiograph dated 03/19/2018. CLINICAL HISTORY: Chest pain COMPARISON STUDY: Chest radiograph dated 07/02/2017 IMPRESSION: There is atelectasis in the lung bases. Lungs are otherwise clear. No pleural effusion or pneumothorax. Cardiomediastinal silhouette is stable in size. No pulmonary edema. No fracture. Signed: Jorge A Piedra MD Report Verified Date/Time:03/19/2018 15:51:57 Reading Location: [facility] Radiology Reading Room Procedure Note Interface, External Ris In - 03/19/2018 3:54 PM CDT FINAL REPORT TECHNIQUE: Frontal chest radiograph dated 03/19/2018. CLINICAL HISTORY: Chest pain COMPARISON STUDY: Chest radiograph dated 07/02/2017 IMPRESSION: There is atelectasis in the lung bases. Lungs are otherwise clear. No pleural effusion or pneumothorax. Cardiomediastinal silhouette is stable in size. No pulmonary edema. No fracture. Signed: Jorge A Piedra MD Report Verified Date/Time: 03/19/2018 15:51:57 Reading Location: [facility] Radiology Reading Room Performing Organization Address City/[facility] Phone Number RIS * Rapid Troponin I ([facility] Only) (03/19/2018 3:20 PM CDT) Rapid Troponin I <0.05 <0.05 ng/mL [facility] [place] Specimen Blood - Arm, Left Performing Organization Address [facility] Phone Number [address] [address] [facility] [place] * Rapid CK-MB ([facility] Only) (03/19/2018 3:20 PM CDT) Rapid CKMB 3.5 0.0 - 4.3 ng/mL [facility] Specimen Blood - Arm, Left Performing Organization Address [facility] Phone Number [address] [address] [facility] [place] * B-type natriuretic peptide (03/19/2018 3:20 PM CDT) BNP 51 0 - 100 pg/mL [facility] [place] Specimen Blood - Arm, Left Performing Organization Address [facility] Phone Number [address] [address] [facility] [place] * Lipase (03/19/2018 3:20 PM CDT) Lipase 82 40 - 240 U/L [facility] Specimen Blood - Arm, Left Performing Organization Address [facility] Phone Number [address] [address] [facility] [place] * Hepatic function panel (03/19/2018 3:20 PM CDT) Protein, Total 8.9 (H) 6.0 - 8.5 gm/dL [facility] [place] Albumin 3.6 3.5 - 5.0 g/dL [facility] [place] Total Bilirubin 0.7 0.1 - 1.2 mg/dL [facility] Bilirubin, Direct 0.4 0.0 - 0.4 mg/dL [facility] Alkaline Phosphatase 105 30 - 115 U/L [facility] AST 34 5 - 40 U/L [facility] [place] ALT 28 5 - 50 U/L [facility] [place] Specimen Blood - Arm, Left Performing Organization Address City/State/Zipcode Phone Number [facility] [address] [place], [place] [id number] [facility] * ECG 12 lead (03/19/2018 2:34 PM CDT) Narrative Performed At Ventricular Rate 56 BPM GE MUSE Atrial Rate 56 BPM P-R Interval 204 ms QRS Duration 106 ms Q-T Interval 438 ms QTC Calculation(Bazett) 422 ms P Drummond 83 degrees R Drummond 11 degrees T Drum[place] 21 degrees Sinus bradycardia Possible Lateral infarct (cited on or before 02-JUL-2017) Abnormal ECG When compared with ECG of 02-JUL-2017 17:38, No significant change was found Confirmed by Vicenta BARROSO, KELLI ([id number]) on 03/20/2018 10:38:38 PM Procedure Note Interface, External Ris In - 03/20/2018 10:38 PM CDT Ventricular Rate 56 BPM Atrial Rate 56 BPM P-R Interval 204 ms QRS Duration 106 ms Q-T Interval 438 ms QTC Calculation(Bazett) 422 ms P [place] 83 degrees R Drum[place] 11 degrees T [place] 21 degrees Sinus bradycardia Possible Lateral infarct (cited on or before 02-JUL-2017) Abnormal ECG When compared with ECG of 02-JUL-2017 17:38, No significant change was found Confirmed by Vicenta BARROSO BASANT ([id number]) on 03/20/2018 10:38:38 PM Performing Organization Address City/State/Zipcode Phone Number GE SYED after 07/10/2017 Insurance Payer Benefit Subscriber ID Type Phone Address Plan / Group K[employer]ARE KELSEYCARE xxxxxxxxxxx MEDICARE ADV MEDICAID MEDICAID xxxxxxxxx Medicaid OF [place] Advance Directives For more information, please contact: [facility] [address] [place] [address] Date Inactivated Comments Code Status Date Activated Full Code 06/16/2018 9:35 PM This code status was determined by: Patient 06/16/2018 9:35 PM Full Code 06/16/2018 6:11 PM This code status was determined by: Patient 07/05/2017 8:58 PM Full Code 07/02/2017 11:30 PM This code status was determined by: Patient 01/11/2017 7:25 PM Full Code 01/09/2017 8:28 PM This code status was determined by: Patient
--- OUTSIDE RECORDS SUMMARY | 2018-07-11 18:33 | XMS REPORT ---
Author Frandy Brown [facility] Unknown Address [address] Phone Unavailable Care Team Providers Care Educational Administrator Name Role Phone Dr. Howard Gordon Jr. Unavailable Unavailable Advance directives Directive Description Status Cardiopulmonary Resuscitation CPR Current and Verified Allergies Type Substance Reaction Status drug allergy Clindamycin Active drug allergy Clotrimazole Active drug allergy Codeine Active drug allergy Ramipril Active Problems Problem Effective Dates Problem Status M86.671 OTHER CHRONIC OSTEOMYELITIS, RIGHT ANKLE AND FOOT 11/28/2017 Active Moderate mental retardation (I.Q. 35-49) (disorder) 11/28/2017 Active L97.519 NON-PRESSURE CHRONIC ULCER OF OTHER PART OF RIGHT FOOT WITH UNSPECIFIED SEVERITY 11/28/2017 Active F33.9 MAJOR DEPRESSIVE DISORDER, RECURRENT, UNSPECIFIED 11/28/2017 Active E08.8 DIABETES MELLITUS DUE TO UNDERLYING CONDITION WITH UNSPECIFIED COMPLICATIONS 11/28/2017 Active H90.5 UNSPECIFIED SENSORINEURAL HEARING LOSS 11/28/2017 Active I10 ESSENTIAL (PRIMARY) HYPERTENSION 11/28/2017 Active M62.81 MUSCLE WEAKNESS (GENERALIZED) 11/28/2017 Active E78.5 HYPERLIPIDEMIA, UNSPECIFIED 11/28/2017 Active F41.9 ANXIETY DISORDER, UNSPECIFIED 11/28/2017 Active F31.9 BIPOLAR DISORDER, UNSPECIFIED 11/28/2017 Active I73.9 PERIPHERAL VASCULAR DISEASE, UNSPECIFIED 11/28/2017 Active Medications Medication Dose Form Route Sig Text Dates Status Heparin Sodium (Porcine) Solution 5000 UNIT/ML 1 ml Solution Injection Inject 1 ml subcutaneously every 12 hours for prophylactic 11/28/2017 20:00:00 12/09/2017 10:01:00 Aborted [place] Tablet 5-325 MG 1 tablet Tablet Oral Give 1 tablet by mouth every 12 hours as needed for pain 11/28/2017 17:45:00 12/08/2017 14:24:00 Aborted QUEtiapine Fumarate Tablet 50 MG 1 tablet Tablet Oral Give 1 tablet by mouth at bedtime for psychosis 11/28/2017 20:00:00 Docusate Sodium Tablet 100 MG 1 tablet Tablet Oral Give 1 tablet by mouth every 12 hours as needed for constipation 11/28/2017 17:45:00 Insulin Lispro Solution 100 UNIT/ML Solution Subcutaneous Inject as per sliding scale: if 70 - 200=0 units; 201 - 250=2 units; 251 - 300=4 units; 301 - 350=6 units; 351 - 400=8 units; 401 - 450=10 units call MD subcutaneously three times a day for DM 11/29/2017 8:00:00 Atorvastatin Calcium Tablet 10 MG 1 tablet Tablet Oral Give 1 tablet by mouth at bedtime for HLD 11/28/2017 20:00:00 Senna Tablet 8.6 MG 1 tablet Tablet Oral Give 1 tablet by mouth every 24 hours as needed for constipation 11/28/2017 18:15:00 Sertraline HCl Tablet 25 MG 1 tablet Tablet Oral Give 1 tablet by mouth one time a day for depression 11/29/2017 8:00:00 Clopidogrel Bisulfate Tablet 75 MG 1 tablet Tablet Oral Give 1 tablet by mouth one time a day for prophylactic 11/29/2017 8:00:00 [place] Tablet 10-325 MG 1 tablet Tablet Oral Give 1 tablet by mouth every 6 hours for pain 12/08/2017 19:00:00 Minocycline HCl Capsule 100 MG 1 capsule Capsule Oral Give 1 capsule by mouth every 12 hours for infected Rt. foot for 7 Days 11/28/2017 20:00:00 12/05/2017 19:59:00 Completed Results Date Test Result Interpretation Reference Range Status Notes Blood sugar 11/29/2017 8:00:32 Blood sugar 78.0 mmol/L 11/29/2017 13:10:08 Blood sugar 99.0 mmol/L 11/29/2017 16:40:21 Blood sugar 86.0 mmol/L 11/30/2017 8:45:58 Blood sugar 122.0 mmol/L 11/30/2017 13:20:38 Blood sugar 137.0 mmol/L 11/30/2017 18:06:20 Blood sugar 98.0 mmol/L 12/01/2017 7:24:01 Blood sugar 77.0 mmol/L 12/01/2017 11:20:38 Blood sugar 86.0 mmol/L 12/01/2017 15:28:30 Blood sugar 89.0 mmol/L 12/02/2017 Blood sugar mmol/L 12/02/2017 9:11:07 Blood sugar 153.0 mmol/L 12/02/2017 11:51:36 Blood sugar 184.0 mmol/L 12/02/2017 21:10:20 Blood sugar 87.0 mmol/L 12/03/2017 7:34:11 Blood sugar 94.0 mmol/L 12/03/2017 13:16:48 Blood sugar 144.0 mmol/L 12/03/2017 22:37:03 Blood sugar 166.0 mmol/L 12/04/2017 7:06:50 Blood sugar 369.0 mmol/L 12/04/2017 11:44:07 Blood sugar 108.0 mmol/L 12/05/2017 7:24:05 Blood sugar 83.0 mmol/L 12/05/2017 11:56:51 Blood sugar 115.0 mmol/L 12/05/2017 17:32:19 Blood sugar 110.0 mmol/L 12/06/2017 8:05:41 Blood sugar 87.0 mmol/L 12/06/2017 13:11:53 Blood sugar 117.0 mmol/L 12/06/2017 19:16:08 Blood sugar 122.0 mmol/L 12/07/2017 7:46:01 Blood sugar 80.0 mmol/L 12/07/2017 12:28:29 Blood sugar 90.0 mmol/L 12/07/2017 18:05:40 Blood sugar 99.0 mmol/L 12/08/2017 8:23:07 Blood sugar 98.0 mmol/L 12/08/2017 13:02:35 Blood sugar 111.0 mmol/L 12/09/2017 10:02:12 Blood sugar 99.0 mmol/L 12/09/2017 16:48:47 Blood sugar 119.0 mmol/L 12/09/2017 22:34:25 Blood sugar 341.0 mmol/L 12/10/2017 12:57:44 Blood sugar 121.0 mmol/L 12/10/2017 12:58:04 Blood sugar 156.0 mmol/L 12/10/2017 20:41:25 Blood sugar 133.0 mmol/L 12/11/2017 7:12:35 Blood sugar 84.0 mmol/L 12/11/2017 12:00:40 Blood sugar 166.0 mmol/L 12/12/2017 9:30:31 Blood sugar 115.0 mmol/L 12/12/2017 12:14:23 Blood sugar 130.0 mmol/L Vital signs Description Observation Date INTRAVASCULAR SYSTOLIC 117.0 mm[Hg] 11/28/2017 20:30:00 INTRAVASCULAR DIASTOLIC 73.0 mm[Hg] 11/28/2017 20:30:00 BODY TEMPERATURE 98.2 [degF] 11/28/2017 20:30:00 HEART BEAT 57.0 {beats}/min 11/28/2017 20:30:00 RESPIRATION RATE 18.0 /min 11/28/2017 20:30:00 PAIN LEVEL 0.0 {score} 11/29/2017 1:07:25 PAIN LEVEL 0.0 {score} 11/30/2017 12:20:05 BODY WEIGHT (MEASURED) 237.2 [lb_av] 12/01/2017 11:18:00 BODY HEIGHT (MEASURED) 63.0 [in_i] 12/01/2017 11:18:00 BODY HEIGHT (MEASURED) 63.0 [in_i] 12/02/2017 BODY WEIGHT (MEASURED) 237.2 [lb_av] 12/02/2017 PAIN LEVEL 0.0 {score} 12/02/2017 8:14:16 PAIN LEVEL 0.0 {score} 12/02/2017 17:39:16 PAIN LEVEL 3.0 {score} 12/02/2017 22:29:27 PAIN LEVEL 0.0 {score} 12/02/2017 23:45:00 PAIN LEVEL 0.0 {score} 12/03/2017 1:44:55 PAIN LEVEL 0.0 {score} 12/03/2017 13:17:14 PAIN LEVEL 0.0 {score} 12/03/2017 16:59:36 PAIN LEVEL 0.0 {score} 12/04/2017 6:16:24 PAIN LEVEL 0.0 {score} 12/05/2017 6:39:31 PAIN LEVEL 0.0 {score} 12/05/2017 16:05:09 PAIN LEVEL 0.0 {score} 12/06/2017 1:27:01 PAIN LEVEL 0.0 {score} 12/06/2017 17:01:13 PAIN LEVEL 0.0 {score} 12/06/2017 17:01:28 PAIN LEVEL 0.0 {score} 12/06/2017 17:01:41 PAIN LEVEL 6.0 {score} 12/08/2017 8:23:31 PAIN LEVEL 6.0 {score} 12/08/2017 15:32:53 PAIN LEVEL 0.0 {score} 12/08/2017 15:33:38 PAIN LEVEL 1.0 {score} 12/08/2017 15:34:00 PAIN LEVEL 1.0 {score} 12/08/2017 18:37:52 PAIN LEVEL 0.0 {score} 12/08/2017 23:52:47 PAIN LEVEL 0.0 {score} 12/09/2017 6:19:03 PAIN LEVEL 0.0 {score} 12/09/2017 12:35:21 PAIN LEVEL 6.0 {score} 12/09/2017 16:49:25 PAIN LEVEL 3.0 {score} 12/09/2017 22:16:15 PAIN LEVEL 0.0 {score} 12/10/2017 2:36:14 PAIN LEVEL 0.0 {score} 12/10/2017 6:25:00 PAIN LEVEL 0.0 {score} 12/10/2017 12:43:01 PAIN LEVEL 5.0 {score} 12/10/2017 12:58:45 PAIN LEVEL 2.0 {score} 12/10/2017 20:30:24 PAIN LEVEL 0.0 {score} 12/11/2017 0:38:41 PAIN LEVEL 0.0 {score} 12/11/2017 6:21:34 PAIN LEVEL 5.0 {score} 12/11/2017 7:48:28 PAIN LEVEL 0.0 {score} 12/11/2017 12:43:42 PAIN LEVEL 0.0 {score} 12/12/2017 6:10:55 PAIN LEVEL 0.0 {score} 12/12/2017 10:39:46 PAIN LEVEL 0.0 {score} 12/12/2017 10:40:01 PAIN LEVEL 0.0 {score} 12/12/2017 10:40:16 PAIN LEVEL 5.0 {score} 12/12/2017 12:15:03 PAIN LEVEL 0.0 {score} 12/12/2017 12:47:36 Social History Smoking Status Start Date End Date Unknown if ever smoked 12/13/2017 8:00:13
--- OUTSIDE RECORDS SUMMARY | 2018-07-11 18:33 | XMS REPORT | Continuity of Care Document ---
Author Author Francoise [facility] Interface Address Unknown Phone Unavailable Problems Problem Status Onset Date Classification Date Reported Comments Source M86.671 OTHER CHRONIC OSTEOMYELITIS, RIGHT ANKLE AND FOOT 11/28/2017 Diagnosis 12/13/2017 SNF: [facility] Moderate mental retardation (disorder) 11/28/2017 Diagnosis 12/13/2017 SNF: [facility] L97.519 NON-PRESSURE CHRONIC ULCER OF OTHER PART OF RIGHT FOOT WITH UNSPECIFIED SEVERITY 11/28/2017 Diagnosis 12/13/2017 SNF: [facility] F33.9 MAJOR DEPRESSIVE DISORDER, RECURRENT, UNSPECIFIED 11/28/2017 Diagnosis 12/13/2017 SNF: [facility] E08.8 DIABETES MELLITUS DUE TO UNDERLYING CONDITION WITH UNSPECIFIED COMPLICATIONS 11/28/2017 Diagnosis 12/13/2017 SNF: [facility] H90.5 UNSPECIFIED SENSORINEURAL HEARING LOSS 11/28/2017 Diagnosis 12/13/2017 SNF: [facility] I10 ESSENTIAL HYPERTENSION 11/28/2017 Diagnosis 12/13/2017 SNF: [facility] M62.81 MUSCLE WEAKNESS 11/28/2017 Diagnosis 12/13/2017 SNF: [facility] E78.5 HYPERLIPIDEMIA, UNSPECIFIED 11/28/2017 Diagnosis 12/13/2017 SNF: [facility] F41.9 ANXIETY DISORDER, UNSPECIFIED 11/28/2017 Diagnosis 12/13/2017 SNF: [facility] F31.9 BIPOLAR DISORDER, UNSPECIFIED 11/28/2017 Diagnosis 12/13/2017 SNF: [facility] I73.9 PERIPHERAL VASCULAR DISEASE, UNSPECIFIED 11/28/2017 Diagnosis 12/13/2017 SNF: [facility] ABSCESS Active 06/09/2012 [facility] Medications Medication Details Route Status Patient Instructions Ordering Provider Order Date Source [place] Tablet 10-325 MG Give 1 tablet by mouth every 6 hours for pain Oral Active 12/08/2017 SNF: [facility] Insulin Lispro Solution 100 UNIT/ML Inject as per sliding scale: if 70 - 200=0 units; 201 - 250=2 units; 251 - 300=4 units; 301 - 350=6 units; 351 - 400=8 units; 401 - 450=10 units call MD, subcutaneously three times a day for DM Subcutaneous Active 11/29/2017 SNF: [facility] Sertraline HCl Tablet 25 MG Give 1 tablet by mouth one time a day for depression Oral Active 11/29/2017 SNF: [facility] Clopidogrel Bisulfate Tablet 75 MG Give 1 tablet by mouth one time a day for prophylactic Oral Active 11/29/2017 SNF: [facility] Heparin Sodium (Porcine) Solution 5000 UNIT/ML Inject 1 ml subcutaneously every 12 hours for prophylactic Injection Active 11/29/2017 SNF: [facility] QUEtiapine Fumarate Tablet 50 MG Give 1 tablet by mouth at bedtime for psychosis Oral Active 11/29/2017 SNF: [facility] Atorvastatin Calcium Tablet 10 MG Give 1 tablet by mouth at bedtime for HLD Oral Active 11/29/2017 SNF: [facility] Minocycline HCl Capsule 100 MG Give 1 capsule by mouth every 12 hours for infected Rt. foot for 7 Days Oral Active 11/29/2017 SNF: [facility] Senna Tablet 8.6 MG Give 1 tablet by mouth every 24 hours as needed for constipation Oral Active 11/28/2017 SNF: [facility] [place] Tablet 5-325 MG Give 1 tablet by mouth every 12 hours as needed for pain Oral Active 11/28/2017 SNF: [facility] Docusate Sodium Tablet 100 MG Give 1 tablet by mouth every 12 hours as needed for constipation Oral Active 11/28/2017 SNF: [facility] Bactrim oral tablet 2 tab, PO, BID, 40 tab, Substitution Allowed, Maintenance PO Active Rosa 06/10/2012 [facility] Keflex 500 mg oral capsule 500 mg, 1 cap, PO, QID, 40 cap, Substitution Allowed PO Active Rosa 06/10/2012 [facility] lidocaine 1% 1 ml, Route: SUB-Q, Drug Form: INJ, Dosing Weight 132.727, kg, ONCE, STAT, Start date: 06/09/12 17:11:00, Stop date: 06/09/12 17:11:00 SUB-Q Active Rosa 06/09/2012 [facility] Allergies, Adverse Reactions, Alerts Substance Category Reaction Severity Reaction type Status Date Reported Comments Source Clindamycin SNF: [facility] Clotrimazole SNF: [facility] Codeine [facility]: [facility] Ramipril SN[facility]: [facility] Immunizations Immunization Date Given Site Status Last Updated Comments Source Results Order Name Results Value Reference Range Date Interpretation Comments Source Blood sugar Blood sugar 130 mmol/L 12/12/2017 SNF: [facility] Blood sugar Blood sugar 115 mmol/L 12/12/2017 SNF: [facility] Blood sugar Blood sugar 166 mmol/L 12/11/2017 SNF: [facility] Blood sugar Blood sugar 84 mmol/L 12/11/2017 SNF: [facility] Blood sugar Blood sugar 133 mmol/L 12/11/2017 SNF: [facility] Blood sugar Blood sugar 156 mmol/L 12/10/2017 SNF: [facility] Blood sugar Blood sugar 121 mmol/L 12/10/2017 SNF: [facility] Blood sugar Blood sugar 341 mmol/L 12/10/2017 SNF: [facility] Blood sugar Blood sugar 119 mmol/L 12/09/2017 SNF: [facility] Blood sugar Blood sugar 99 mmol/L 12/09/2017 SNF: [facility] Blood sugar Blood sugar 111 mmol/L 12/08/2017 SNF: [facility] Blood sugar Blood sugar 98 mmol/L 12/08/2017 SNF: [facility] Blood sugar Blood sugar 99 mmol/L 12/07/2017 SNF: [facility] Blood sugar Blood sugar 90 mmol/L 12/07/2017 SNF: [facility] Blood sugar Blood sugar 80 mmol/L 12/07/2017 SNF: [facility] Blood sugar Blood sugar 122 mmol/L 12/06/2017 SNF: [facility] Blood sugar Blood sugar 117 mmol/L 12/06/2017 SNF: [facility] Blood sugar Blood sugar 87 mmol/L 12/06/2017 SNF: [facility] Blood sugar Blood sugar 110 mmol/L 12/05/2017 SNF: [facility] Blood sugar Blood sugar 115 mmol/L 12/05/2017 SNF: [facility] Blood sugar Blood sugar 83 mmol/L 12/05/2017 SNF: [facility] Blood sugar Blood sugar 108 mmol/L 12/04/2017 SNF: [facility] Blood sugar Blood sugar 369 mmol/L 12/04/2017 SNF: [facility] Blood sugar Blood sugar 166 mmol/L 12/04/2017 SNF: [facility] Blood sugar Blood sugar 144 mmol/L 12/03/2017 SNF: [facility] Blood sugar Blood sugar 94 mmol/L 12/03/2017 SNF: [facility] Blood sugar Blood sugar 87 mmol/L 12/03/2017 SNF: [facility] Blood sugar Blood sugar 184 mmol/L 12/02/2017 SNF: [facility] Blood sugar Blood sugar 153 mmol/L 12/02/2017 SNF: [facility] Blood sugar Blood sugar 89 mmol/L 12/01/2017 SNF: [facility] Blood sugar Blood sugar 86 mmol/L 12/01/2017 SNF: [facility] Blood sugar Blood sugar 77 mmol/L 12/01/2017 SNF: [facility] Blood sugar Blood sugar 98 mmol/L 11/30/2017 SNF: [facility] Blood sugar Blood sugar 137 mmol/L 11/30/2017 SNF: [facility] Blood sugar Blood sugar 122 mmol/L 11/30/2017 SNF: [facility] Blood sugar Blood sugar 86 mmol/L 11/29/2017 SNF: [facility] Blood sugar Blood sugar 99 mmol/L 11/29/2017 SNF: [facility] Blood sugar Blood sugar 78 mmol/L 11/29/2017 SNF: [facility] BEDSIDE GLUCOSE TESTING Gluc POC [place] 92 mg/dL 70 - 99 06/09/2012 Normal 1Interpretive Data: Upper Reportable Limit: 200 mg/dL. [facility] BEDSIDE GLUCOSE TESTING Comment1 Notify RN/MD 06/09/2012 NA [facility] Vital Signs Vital Sign Value Date Comments Source Height 63 12/02/2017 SNF: [facility] Weight 237.2 12/02/2017 SNF: [facility] Weight 237.2 12/01/2017 SNF: [facility] Height 63 12/01/2017 SNF: [facility] Systolic (mm Hg) 117 11/29/2017 SNF: [facility] Diastolic (mm Hg) 73 11/29/2017 SNF: [facility] Temperature Oral (F) 98.2 F 11/29/2017 SNF: [facility] Heart Rate 57 {beats}/min 11/29/2017 SNF: [facility] Respitory Rate 18 11/29/2017 SNF: [facility] Weight 132.727 06/09/2012 [facility] Encounters Location Location Details Encounter Type Encounter Number Reason For Visit Attending Provider ADM Date DC Date Status Source [facility] Emergency [id number] ABSCESS DIONY VINCENT 06/09/2012 06/09/2012 Active [facility] Procedures Procedure Code Date Perfomer Comments Source
[2018-07-11 19:55] LABS: BASOPHILS # (AUTO) 0.1 (0.0-0.1); BASOPHILS % 0.5 % (0.0-1.0); EOSINOPHILS # (AUTO) 0.5 (0.0-0.4); EOSINOPHILS % 4.4 % (0.0-6.0); HEMOGLOBIN 13.9 g/dL (14.0-18.0); LYMPHOCYTES % 18.4 % (18.0-39.1); MEAN CORPUSCULAR HEMOGLOBIN 31.4 pg (28-32); MEAN CORPUSCULAR HGB CONC 32.3 g/dL (31-35); MEAN CORPUSCULAR VOLUME 97.1 fL (81-99); MONOCYTES # (AUTO) 2.3 (0.2-0.8); MONOCYTES % 20.8 % (4.4-11.3); NEUTROPHILS # (AUTO) 6.1 (2.1-6.9); NEUTROPHILS % 55.6 % (38.7-80.0); PLATELET COUNT 247 x10e3/uL (140-360); RED BLOOD COUNT 4.43 x10e6/uL (4.3-5.7)
[2018-07-11 20:10] LABS: ALANINE AMINOTRANSFERASE 15 IU/L (0-55); ALBUMIN 2.7 g/dL (3.5-5.0); ALBUMIN/GLOBULIN RATIO 0.5 (0.8-2.0); ALKALINE PHOSPHATASE 68 IU/L (40-150); ANION GAP 13.9 mmol/L (8-16); BLOOD UREA NITROGEN 19 mg/dL (7-26); BUN/CREATININE RATIO 20 (6-25); CALCIUM 9.1 mg/dL (8.4-10.2); CARBON DIOXIDE 26 mmol/L (22-29); CHLORIDE 107 mmol/L (98-107); CREATININE, SERUM 0.93 mg/dL (0.72-1.25); EST GLOMERULAR FILTRATION RATE > 60 ML/MIN (60-); GLUCOSE 94 mg/dL (74-118); POTASSIUM 3.9 mmol/L (3.5-5.1); SODIUM 143 mmol/L (136-145)
--- NOTE | 2018-07-11 21:30 | Diagnostic Imaging Report ---
TIBIA-FIBULA BILATERAL, FOOT COMPLETE BILATERAL Comparison: None Clinical history: Cellulitis Findings: Bilateral tibia and fibula: Diffuse bilateral soft tissue swelling and decreased bone mineralization. Well-corticated ossicle or chronic fracture of the left inferior malleolus. No acute fracture or cortical destruction. Bilateral feet: Diffuse bilateral soft tissue swelling and decreased bone mineralization. Pes planus with mild midfoot degenerative changes. No acute fracture or cortical destruction. Impression: Diffuse soft tissue swelling without radiographic evidence of osteomyelitis. Signed by: Dr Beatriz Tejeda MD on 07/11/2018 9:27 PM
[2018-07-11 22:27] VITALS: BP 117/84
== END | disposition short-term general hospital (02) ==
LOC: ER 18:30
DX: L03.116 Cellulitis of left lower limb (principal); L03.115 Cellulitis of right lower limb; I89.0 Lymphedema, not elsewhere classified; I10 Essential (primary) hypertension; E11.9 Type 2 diabetes mellitus without complications; E78.5 Hyperlipidemia, unspecified; F79 Unspecified intellectual disabilities
CPT/HCPCS: 36415; 73590; 73630; 80053; 83605; 85025; 87040; 87071; 87186; 87205; 99284; J0692; J2270; J3370